=== PATIENT | male | born 1985 | race Two or more races ===

== ENCOUNTER 2019-07-05 20:02 | Inpatient (IN) | payer MEDICAID ==
[~2019-07-05] VITALS: Ht 177.8 cm; Wt 118.1 kg
--- NOTE | 2019-07-05 20:08 | NUR ---
ED Nurse Note: Patient brought in by ambulance with complaints of Supraventricular V-tach rhythm. Patient received two rounds of adenosine 12 in the field. Patient converted to NSR prior to arrival to ED. Patient is resting comfortably with no s/s of acute distress. Patient placed on 2L O2 while satting at 88%. Patient talking with family with ease. Blood specimen collected and sent to lab. Urine specimen pending. Will continue to monitor for results and impending orders.
[2019-07-05 20:11] VITALS: BP 134/95
[2019-07-05] MEDS ORDERED: Labetalol 5mg/ml 20ml vial IV ONE (20:15)
[2019-07-05] MEDS ORDERED: METOPROLOL TART25 MG ORAL (20:19)
[2019-07-05] MEDS ORDERED: LISINOPRIL2.5 MG ORAL (20:19)
[2019-07-05 20:23] LABS: BASOPHILS % (AUTO) 1.1 % (0.0-2.0); EOSINOPHILS % (AUTO) 1.5 % (0.0-3.0); HEMATOCRIT 52.8 % (42.0-52.0); HEMOGLOBIN 17.2 G/DL (14.2-18.0); LYMPHOCYTES % (AUTO) 25.2 % (20.0-45.0); MEAN CORPUSCULAR VOLUME 92 FL (80-99); MONOCYTES % (AUTO) 5.9 % (1.0-10.0); NEUTROPHILS % (AUTO) 66.3 % (45.0-75.0); PLATELET COUNT 309 K/UL (150-450); RED BLOOD COUNT 5.74 M/UL (4.70-6.10); RED CELL DISTRIBUTION WIDTH 13.4 % (11.6-14.8); WHITE BLOOD COUNT 11.2 K/UL (4.8-10.8)
--- NOTE | 2019-07-05 20:23 | NUR ---
ED Nurse Note: Patient voided, urine specimen collected and sent to lab.
[2019-07-05 20:34] LABS: APPEARANCE,URINE CLEAR; BILIRUBIN, URINE NEGATIVE (NEGATIVE); GLUCOSE, URINE (UA) NEGATIVE (NEGATIVE); KETONES,URINE NEGATIVE (NEGATIVE); LEUKOCYTE ESTERASE ,URINE NEGATIVE (NEGATIVE); NITRITE,URINE NEGATIVE (NEGATIVE); PH,URINE 5 (4.5-8.0); PROTEIN,URINE 2+ (NEGATIVE); UROBILINOGEN,URINE NORMAL MG/DL (0.0-1.0)
[2019-07-05 20:45] LABS: COLOR,URINE YELLOW
--- NOTE | 2019-07-05 20:47 | Emergency Room Report ---
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 denies any recent fevers or chills denies any vomiting Denies any phlegm production or any obvious cough (JeffryGarrett gillespie DO) Allergies: Coded Allergies: No Known Allergies (Unverified , 07/05/19) COVID-19 Screening Contact w/high risk pt: No Recent Travel to affected area: No Experienced COVID-19 symptoms?: No (JeffryGarrett gillespie DO) Patient History Past Medical History: see triage record Reviewed Nursing Documentation: PMH: Agreed; PSxH: Agreed (Garrett Rossi DO) Nursing Documentation-PMH Hx Cardiac Problems: Yes - Gcdai-Djryphzna-Asfaq Syndrome Hx Hypertension: Yes (Garrett Rossi DO) Review of Systems All Other Systems: negative except mentioned in HPI (ChristopheralicjaGarrett MCELROY) Physical Exam Vital Signs Date Time Temp Pulse Resp B/P (MAP) Pulse Ox O2 Delivery O2 Flow Rate FiO2 07/05/19 20:03 97.2 110 24 150/101 (117) 81 Room Air Sp02 EP Interpretation: reviewed, abnormal - Low percentage, on 2 L nasal cannula patient saturating at 95% which is normal General Appearance: mild distress - Appears mildly tachypneic Head: normocephalic, atraumatic Eyes: bilateral eye PERRL, bilateral eye EOMI ENT: hearing grossly normal, normal pharynx, TMs + canals normal, uvula midline Neck: full range of motion, supple, no meningismus, no bony tend Respiratory: no rhonchi, no respiratory distress, no retraction, no accessory muscle use, crackles - both Lower lobes Cardiovascular #1: normal peripheral pulses, no edema, no gallop, no JVD, no murmur, tachycardia Gastrointestinal: normal bowel sounds, non tender, soft, no mass, no organomegaly, non-distended, no guarding, no hernia, no pulsatile mass, no rebound Genitourinary: no CVA tenderness Musculoskeletal: normal inspection Neurologic: motor strength/tone normal, inspector rubber stamp die III-XII nml as tested, oriented x3 , sensory intact, responsive Psychiatric: mood/affect normal Skin: no rash Lymphatic: normal inspection, no adenopathy (Garrett Rossi DO) Medical Decision Making Diagnostic Impression: Primary Impression: Pneumonia Additional Impression: SVT (supraventricular tachycardia) ER Course Patient is a fairly complex patient with multiple differential to consideration including but not limited to cardiac cardiopulmonary and vascular emergencies With the patient's initial presentation of SVT cardiac work-up was initiated x- ray imaging however does show evidence of concern for right-sided pneumonia Given the patient's Multiple comorbidities and presentation there is concern for covid-19 Patient also had complaints of sore throat At this time saturating well on 2 L nasal cannula And patient admitted to inpatient care for further evaluation Labs Test 07/05/19 20:00 07/05/19 20:19 07/06/19 09:05 07/06/19 09:30 White Blood Count 11.2 K/UL (4.8-10.8) 9.8 K/UL (4.8-10.8) Red Blood Count 5.74 M/UL (4.70-6.10) 5.30 M/UL (4.70-6.10) Hemoglobin 17.2 G/DL (14.2-18.0) 16.2 G/DL (14.2-18.0) Hematocrit 52.8 % (42.0-52.0) 46.7 % (42.0-52.0) Mean Corpuscular Volume 92 FL (80-99) 88 FL (80-99) Mean Corpuscular Hemoglobin 30.0 PG (27.0-31.0) 30.6 PG (27.0-31.0) Mean Corpuscular Hemoglobin Concent 32.6 G/DL (32.0-36.0) 34.7 G/DL (32.0-36.0) Red Cell Distribution Width 13.4 % (11.6-14.8) 11.8 % (11.6-14.8) Platelet Count 309 K/UL (150-450) 305 K/UL (150-450) Mean Platelet Volume 7.9 FL (6.5-10.1) 6.5 FL (6.5-10.1) Neutrophils (%) (Auto) 66.3 % (45.0-75.0) 58.4 % (45.0-75.0) Lymphocytes (%) (Auto) 25.2 % (20.0-45.0) 29.2 % (20.0-45.0) Monocytes (%) (Auto) 5.9 % (1.0-10.0) 8.5 % (1.0-10.0) Eosinophils (%) (Auto) 1.5 % (0.0-3.0) 2.7 % (0.0-3.0) Basophils (%) (Auto) 1.1 % (0.0-2.0) 1.2 % (0.0-2.0) Prothrombin Time 10.5 SEC (9.30-11.50) Prothromb Time International Ratio 1.0 (0.9-1.1) Activated Partial Thromboplast Time 27 SEC (23-33) Sodium Level 144 MMOL/L (136-145) 145 MMOL/L (136-145) Potassium Level 3.7 MMOL/L (3.5-5.1) 3.8 MMOL/L (3.5-5.1) Chloride Level 107 MMOL/L (98-107) 108 MMOL/L (98-107) Carbon Dioxide Level 22 MMOL/L (21-32) 25 MMOL/L (21-32) Anion Gap 15 mmol/L (5-15) 12 mmol/L (5-15) Blood Urea Nitrogen 12 mg/dL (7-18) 12 mg/dL (7-18) Creatinine 1.2 MG/DL (0.55-1.30) 1.0 MG/DL (0.55-1.30) Estimat Glomerular Filtration Rate > 60 mL/min (>60) > 60 mL/min (>60) Glucose Level 132 MG/DL (74-106) 100 MG/DL (74-106) Calcium Level 9.7 MG/DL (8.5-10.1) 8.8 MG/DL (8.5-10.1) Total Bilirubin 0.5 MG/DL (0.2-1.0) 0.8 MG/DL (0.2-1.0) Aspartate Amino Transf (AST/SGOT) 69 U/L (15-37) 49 U/L (15-37) Alanine Aminotransferase (ALT/SGPT) 134 U/L (12-78) 117 U/L (12-78) Alkaline Phosphatase 84 U/L (46-116) 64 U/L (46-116) Troponin I 0.011 ng/mL (0.000-0.056) Pro-B-Type Natriuretic Peptide 39 pg/mL (0-125) Total Protein 7.9 G/DL (6.4-8.2) 7.3 G/DL (6.4-8.2) Albumin 4.3 G/DL (3.4-5.0) 3.9 G/DL (3.4-5.0) Globulin 3.6 g/dL 3.4 g/dL Albumin/Globulin Ratio 1.2 (1.0-2.7) 1.1 (1.0-2.7) Urine Color Yellow Urine Appearance Clear Urine pH 5 (4.5-8.0) Urine Specific [place] 1.025 (1.005-1.035) Urine Protein 2+ (NEGATIVE) Urine Glucose (UA) Negative (NEGATIVE) Urine Ketones Negative (NEGATIVE) Urine Blood Negative (NEGATIVE) Urine Nitrite Negative (NEGATIVE) Urine Bilirubin Negative (NEGATIVE) Urine Urobilinogen Normal MG/DL (0.0-1.0) Urine Leukocyte Esterase Negative (NEGATIVE) Urine RBC 0 /HPF (0 - 0) Urine WBC 0-2 /HPF (0 - 0) Urine Squamous Epithelial Cells None /LPF (NONE/OCC) Urine Bacteria Few /HPF (NONE) Urine Hyaline Casts 0-2 /LPF (NONE) Urine Opiates Screen Negative (NEGATIVE) Urine Barbiturates Screen Negative (NEGATIVE) Phencyclidine (PCP) Screen Negative (NEGATIVE) Urine Amphetamines Screen Negative (NEGATIVE) Urine Benzodiazepines Screen Negative (NEGATIVE) Urine Cocaine Screen Negative (NEGATIVE) Urine Marijuana (THC) Screen Negative (NEGATIVE) C-Reactive Protein, Quantitative 0.5 mg/dL (0.00-0.90) Test 07/07/19 06:25 07/08/19 05:20 White Blood Count 8.9 K/UL (4.8-10.8) 8.7 K/UL (4.8-10.8) Red Blood Count 4.95 M/UL (4.70-6.10) 5.16 M/UL (4.70-6.10) Hemoglobin 15.7 G/DL (14.2-18.0) 16.1 G/DL (14.2-18.0) Hematocrit 43.9 % (42.0-52.0) 45.2 % (42.0-52.0) Mean Corpuscular Volume 89 FL (80-99) 88 FL (80-99) Mean Corpuscular Hemoglobin 31.7 PG (27.0-31.0) 31.1 PG (27.0-31.0) Mean Corpuscular Hemoglobin Concent 35.8 G/DL (32.0-36.0) 35.5 G/DL (32.0-36.0) Red Cell Distribution Width 11.9 % (11.6-14.8) 11.6 % (11.6-14.8) Platelet Count 271 K/UL (150-450) 284 K/UL (150-450) Mean Platelet Volume 6.6 FL (6.5-10.1) 6.4 FL (6.5-10.1) Neutrophils (%) (Auto) 48.3 % (45.0-75.0) 52.9 % (45.0-75.0) Lymphocytes (%) (Auto) 36.8 % (20.0-45.0) 33.4 % (20.0-45.0) Monocytes (%) (Auto) 9.3 % (1.0-10.0) 8.5 % (1.0-10.0) Eosinophils (%) (Auto) 4.6 % (0.0-3.0) 4.2 % (0.0-3.0) Basophils (%) (Auto) 1.1 % (0.0-2.0) 1.0 % (0.0-2.0) Sodium Level 141 MMOL/L (136-145) 140 MMOL/L (136-145) Potassium Level 3.5 MMOL/L (3.5-5.1) 3.3 MMOL/L (3.5-5.1) Chloride Level 107 MMOL/L (98-107) 105 MMOL/L (98-107) Carbon Dioxide Level 23 MMOL/L (21-32) 22 MMOL/L (21-32) Anion Gap 11 mmol/L (5-15) 13 mmol/L (5-15) Blood Urea Nitrogen 14 mg/dL (7-18) 10 mg/dL (7-18) Creatinine 1.0 MG/DL (0.55-1.30) 0.8 MG/DL (0.55-1.30) Estimat Glomerular Filtration Rate > 60 mL/min (>60) > 60 mL/min (>60) Glucose Level 98 MG/DL (74-106) 87 MG/DL (74-106) Calcium Level 8.7 MG/DL (8.5-10.1) 8.3 MG/DL (8.5-10.1) Total Bilirubin 0.3 MG/DL (0.2-1.0) 0.3 MG/DL (0.2-1.0) Aspartate Amino Transf (AST/SGOT) 41 U/L (15-37) 60 U/L (15-37) Alanine Aminotransferase (ALT/SGPT) 95 U/L (12-78) 130 U/L (12-78) Alkaline Phosphatase 66 U/L (46-116) 67 U/L (46-116) Troponin I 0.045 ng/mL (0.000-0.056) Pro-B-Type Natriuretic Peptide 74 pg/mL (0-125) Total Protein 6.9 G/DL (6.4-8.2) 7.2 G/DL (6.4-8.2) Albumin 3.6 G/DL (3.4-5.0) 3.8 G/DL (3.4-5.0) Globulin 3.3 g/dL 3.4 g/dL Albumin/Globulin Ratio 1.1 (1.0-2.7) 1.1 (1.0-2.7) Thyroid Stimulating Hormone (TSH) 1.893 uiU/mL (0.358-3.740) Free Thyroxine 0.74 NG/DL (0.76-1.46) Hepatitis A IgM Antibody Negative (Negative) Hepatitis B Surface Antigen Negative (Negative) Hepatitis B Core IgM Antibody Negative (Negative) Hepatitis C Antibody <0.1 s/co ratio (Garrett Rossi DO) ER Course I assumed care of this patient during my shift. The patient had presented with pneumonia and shortness of breath. The patient was on oxygen and in isolation for COVID-19. The patient remained stable and on droplet precautions with oxygen saturations in the high 90s. There was no deterioration of this patient during my care. This patient was evaluated in the context of the global COVID-19 pandemic, which necessitated consideration that the patient might be at risk for infection with the [id number] virus that causes COVID-19. Institutional protocols in a log rhythms that pertain to the evaluation of patients at risk for COVID-19 and the state of rapid change based on information released by multiple regulatory bodies including the CDC and federal and state organizations. These policies and algorithms were followed during the patient' s care in the ED. Laboratory Tests Test 07/05/19 20:00 07/05/19 20:19 07/06/19 09:05 07/06/19 09:30 White Blood Count 11.2 K/UL (4.8-10.8) H 9.8 K/UL (4.8-10.8) Red Blood Count 5.74 M/UL (4.70-6.10) 5.30 M/UL (4.70-6.10) Hemoglobin 17.2 G/DL (14.2-18.0) 16.2 G/DL (14.2-18.0) Hematocrit 52.8 % (42.0-52.0) H 46.7 % (42.0-52.0) Mean Corpuscular Volume 92 FL (80-99) 88 FL (80-99) Mean Corpuscular Hemoglobin 30.0 PG (27.0-31.0) 30.6 PG (27.0-31.0) Mean Corpuscular Hemoglobin Concent 32.6 G/DL (32.0-36.0) 34.7 G/DL (32.0-36.0) Red Cell Distribution Width 13.4 % (11.6-14.8) 11.8 % (11.6-14.8) Platelet Count 309 K/UL (150-450) 305 K/UL (150-450) Mean Platelet Volume 7.9 FL (6.5-10.1) 6.5 FL (6.5-10.1) Neutrophils (%) (Auto) 66.3 % (45.0-75.0) 58.4 % (45.0-75.0) Lymphocytes (%) (Auto) 25.2 % (20.0-45.0) 29.2 % (20.0-45.0) Monocytes (%) (Auto) 5.9 % (1.0-10.0) 8.5 % (1.0-10.0) Eosinophils (%) (Auto) 1.5 % (0.0-3.0) 2.7 % (0.0-3.0) Basophils (%) (Auto) 1.1 % (0.0-2.0) 1.2 % (0.0-2.0) Prothrombin Time 10.5 SEC (9.30-11.50) Prothrombin Time INR 1.0 (0.9-1.1) Activated Partial Thromboplast Time 27 SEC (23-33) Sodium Level 144 MMOL/L (136-145) 145 MMOL/L (136-145) Potassium Level 3.7 MMOL/L (3.5-5.1) 3.8 MMOL/L (3.5-5.1) Chloride Level 107 MMOL/L (98-107) 108 MMOL/L (98-107) H Carbon Dioxide Level 22 MMOL/L (21-32) 25 MMOL/L (21-32) Anion Gap 15 mmol/L (5-15) 12 mmol/L (5-15) Blood Urea Nitrogen 12 mg/dL (7-18) 12 mg/dL (7-18) Creatinine 1.2 MG/DL (0.55-1.30) 1.0 MG/DL (0.55-1.30) Estimated Glomerular Filtration Rate > 60 mL/min (>60) > 60 mL/min (>60) Glucose Level 132 MG/DL (74-106) H 100 MG/DL (74-106) Calcium Level 9.7 MG/DL (8.5-10.1) 8.8 MG/DL (8.5-10.1) Total Bilirubin 0.5 MG/DL (0.2-1.0) 0.8 MG/DL (0.2-1.0) Aspartate Amino Transferase (AST) 69 U/L (15-37) H 49 U/L (15-37) H Alanine Aminotransferase (ALT) 134 U/L (12-78) H 117 U/L (12-78) H Alkaline Phosphatase 84 U/L (46-116) 64 U/L (46-116) Troponin I 0.011 ng/mL (0.000-0.056) Pro-B-Type Natriuretic Peptide 39 pg/mL (0-125) Total Protein 7.9 G/DL (6.4-8.2) 7.3 G/DL (6.4-8.2) Albumin 4.3 G/DL (3.4-5.0) 3.9 G/DL (3.4-5.0) Globulin 3.6 g/dL 3.4 g/dL Albumin/Globulin Ratio 1.2 (1.0-2.7) 1.1 (1.0-2.7) Urine Color Yellow Urine Appearance Clear Urine pH 5 (4.5-8.0) Urine Specific [place] 1.025 (1.005-1.035) Urine Protein 2+ (NEGATIVE) H Urine Glucose (UA) Negative (NEGATIVE) Urine Ketones Negative (NEGATIVE) Urine Blood Negative (NEGATIVE) Urine Nitrite Negative (NEGATIVE) Urine Bilirubin Negative (NEGATIVE) Urine Urobilinogen Normal MG/DL (0.0-1.0) Urine Leukocyte Esterase Negative (NEGATIVE) Urine RBC 0 /HPF (0 - 0) Urine WBC 0-2 /HPF (0 - 0) Urine Squamous Epithelial Cells None /LPF (NONE/OCC) Urine Bacteria Few /HPF (NONE) Urine Hyaline Casts 0-2 /LPF (NONE) H Urine Opiates Screen Negative (NEGATIVE) Urine Barbiturates Screen Negative (NEGATIVE) Phencyclidine (PCP) Screen Negative (NEGATIVE) Urine Amphetamines Screen Negative (NEGATIVE) Urine Benzodiazepines Screen Negative (NEGATIVE) Urine Cocaine Screen Negative (NEGATIVE) Urine Marijuana (THC) Screen Negative (NEGATIVE) C-Reactive Protein, Quantitative 0.5 mg/dL (0.00-0.90) (Kaylee Rodriguez DO) Rhythm Strip Diag. Results EP Interpretation: yes Rate: 108 Rhythm: no PVC's, no ectopy, other - Sinus tach (Garrett Rossi DO) Chest X-Ray Diagnostic Results Chest X-Ray Diagnostic Results : Chest X-Ray Ordered: Yes # of Views/Limited/Complete: 1 View Indication: Chest Pain EP Interpretation: Yes Interpretation: no effusion, no pneumothorax, other - Right-sided upper and mid lung infiltrates Impression: Other - Right-sided infiltrate Electronically Signed by: Garrett Rossi DO (Garrett Rossi DO) Last Vital Signs Date Time Temp Pulse Resp B/P (MAP) Pulse Ox O2 Delivery O2 Flow Rate FiO2 07/05/19 20:19 110 134/95 07/05/19 20:11 97.2 24 81 Room Air Status: improved (Garrett Rossi DO) Disposition: ADMITTED INPATIENT Condition: Serious Garrett Rossi DO Jul 05, 2019 20:47 Kaylee Rodriguez DO Jul 06, 2019 13:12
[2019-07-05 20:56] LABS: ANION GAP 15 mmol/L (5-15); BLOOD UREA NITROGEN 12 mg/dL (7-18); CALCIUM 9.7 MG/DL (8.5-10.1); CARBON DIOXIDE 22 MMOL/L (21-32); CHLORIDE 107 MMOL/L (98-107); CREATININE 1.2 MG/DL (0.55-1.30); POTASSIUM 3.7 MMOL/L (3.5-5.1); SODIUM 144 MMOL/L (136-145)
[2019-07-05 21:07] LABS: ALANINE AMINOTRANSFERASE 134 U/L (12-78); ALBUMIN 4.3 G/DL (3.4-5.0); ALBUMIN/GLOBULIN RATIO 1.2 (1.0-2.7); ALKALINE PHOSPHATASE 84 U/L (46-116); ASPARTATE AMINO TRANSFERASE 69 U/L (15-37); BILIRUBIN,TOTAL 0.5 MG/DL (0.2-1.0)
[2019-07-05 21:40] VITALS: BP 158/105
--- NOTE | 2019-07-05 21:40 | NUR ---
ED Nurse Note: Report received from TORY Carbajal. Pt placed in ortho room with ISO precautions implemented. Pt is in no acute distress at this time. Pt is on 2L oxygen via nc. Pt connected to monitor worker. Safety measures in place. Will continue to closely monitor pt.
[2019-07-05 23:40] VITALS: BP 139/91
--- NOTE | 2019-07-05 23:40 | NUR ---
ED Nurse Note: Pt appears to be sleeping at this time, no acute distress noted. Pt is breathing normal and unlabored on 2L oxygen via NC. Will continue to monitor. Vital signs stable as charted.
[2019-07-06] VITALS (10 sets, daily range): BP systolic 123–189; BP diastolic 81–101
--- NOTE | 2019-07-06 02:00 | NUR ---
ED Nurse Note: Pt is awake, alert and watching tv on cell phone. Pt is breathing normal and unlabored and speaking in full sentences on 2L oxygen via NC. VSS as charted. No acute distress noted. Pt repositioned and IV fluids inititated. Will continue to monitor, safety measures in place.
--- NOTE | 2019-07-06 03:34 | Diagnostic Imaging Report ---
EXAM: XR Chest, 1 View EXAM: XR Chest, 1 View CLINICAL HISTORY: Images Study Description: XRAY CHEST 1 V Body Part: CHEST chest pain TECHNIQUE: Frontal view of the chest. COMPARISON: No relevant prior studies available. FINDINGS: Study limited to single portable AP chest radiograph. No significant cardiac enlargement. Ill-defined patchy alveolar densities right upper and right lung base indeterminate for pneumonia. Recommend upright PA and lateral views of the chest. Negative for pneumothorax or pleural fluid collections.
--- NOTE | 2019-07-06 04:00 | NUR ---
ED Nurse Note: Pt is resting comfortably in bed, no acute distress noted. AM labs drawn by RN and sent to lab. Pt provided with oral hydration. Vital signs are stable. Will continue to monitor.
--- NOTE | 2019-07-06 06:15 | NUR ---
ED Nurse Note: Pt is awake and alert, breathing is normal and unlabored. No acute distress noted. COVID swab done and sent to lab. Pt remains on 2L oxygen via NC. Will continue to monitor pt.
--- NOTE | 2019-07-06 06:40 | NUR ---
ED Nurse Note: Pt moved to room 7 at this time, connected to pvc monitor. ISO precuations taken.
--- NOTE | 2019-07-06 07:00 | NUR ---
HAND-OFF: Report given to TORY Gatica and endorsed plan of care.
--- NOTE | 2019-07-06 08:30 | NUR ---
ED Nurse Note: Received pt from TORY Saleem for continuity of care. Pt is on bed, awake and alert, VSS, on 2LPM via NC. Pt denies any pain nor discomfort as of now. Maintained on droplet isolation precautions. Safety assured. will continue to monitor.
--- NOTE | 2019-07-06 08:40 | NUR ---
ED Nurse Note: Called and spoke with Dr. Zavala for any additional admitting orders: received order for CBC, CMP and cardiac diet; no ordered meds as of now.
--- NOTE | 2019-07-06 09:05 | NUR ---
ED Nurse Note: established another IV site on RT AC with 20G, blood collected, sent to labs. Hydration going on IV site, patent and infusing well.
[2019-07-06 09:26] LABS: ANION GAP 12 mmol/L (5-15); BLOOD UREA NITROGEN 12 mg/dL (7-18); CALCIUM 8.8 MG/DL (8.5-10.1); CARBON DIOXIDE 25 MMOL/L (21-32); CHLORIDE 108 MMOL/L (98-107); POTASSIUM 3.8 MMOL/L (3.5-5.1); SODIUM 145 MMOL/L (136-145)
[2019-07-06 09:31] LABS: ALANINE AMINOTRANSFERASE 117 U/L (12-78); ALBUMIN 3.9 G/DL (3.4-5.0); ALBUMIN/GLOBULIN RATIO 1.1 (1.0-2.7); ALKALINE PHOSPHATASE 64 U/L (46-116); ASPARTATE AMINO TRANSFERASE 49 U/L (15-37); BILIRUBIN,TOTAL 0.8 MG/DL (0.2-1.0)
--- NOTE | 2019-07-06 09:49 | General Progress Note ---
Assessment/Plan Problem List: (1) Elevated LFTs ICD Codes: R79.89 - Other specified abnormal findings of blood chemistry SNOMED: 384885794, 422190684 (2) SVT (supraventricular tachycardia) ICD Codes: I47.1 - Supraventricular tachycardia SNOMED: 1929266 (3) Pneumonia ICD Codes: J18.9 - Pneumonia, unspecified organism SNOMED: 245387349 (4) Suspected COVID-19 virus infection ICD Codes: R68.89 - Other general symptoms and signs SNOMED: 148570534 Assessment/Plan: mild transaminitis ca be due to COVID pending culture also can be medication related hepatitis panel abd us repeat labs will fu Subjective Allergies: Coded Allergies: No Known Allergies (Unverified , 07/05/19) Objective Last 24 Hour Vital Signs Date Time Temp Pulse Resp B/P (MAP) Pulse Ox O2 Delivery O2 Flow Rate FiO2 07/06/19 08:55 97.1 93 19 148/98 95 Nasal Cannula 2.0 07/06/19 06:15 97.1 91 19 155/100 97 Nasal Cannula 2.0 07/06/19 04:00 97.4 99 24 123/82 96 Nasal Cannula 2.0 07/06/19 02:00 97.5 92 21 128/81 96 Nasal Cannula 2.0 07/05/19 23:40 97.2 87 23 139/91 96 Nasal Cannula 2.0 07/05/19 21:40 97.2 95 17 158/105 100 Nasal Cannula 2.0 07/05/19 20:19 110 134/95 07/05/19 20:11 97.2 110 24 134/95 81 Room Air 07/05/19 20:11 110 24 Room Air 07/05/19 20:03 97.2 110 24 150/101 (117) 81 Room Air Intake and Output 07/05/19 07/06/19 19:00 07:00 Intake Total 0 ml Balance 0 ml Intake Oral 0 ml Laboratory Tests 07/05/19 20:00: White Blood Count 11.2H, Red Blood Count 5.74, Hemoglobin 17.2, Hematocrit 52.8H , Mean Corpuscular Volume 92, Mean Corpuscular Hemoglobin 30.0, Mean Corpuscular Hemoglobin Concent 32.6, Red Cell Distribution Width 13.4, Platelet Count 309, Mean Platelet Volume 7.9, Neutrophils (%) (Auto) 66.3, Lymphocytes (% ) (Auto) 25.2, Monocytes (%) (Auto) 5.9, Eosinophils (%) (Auto) 1.5, Basophils ( %) (Auto) 1.1, Prothrombin Time 10.5, Prothromb Time International Ratio 1.0, Activated Partial Thromboplast Time 27, Sodium Level 144, Potassium Level 3.7, Chloride Level 107, Carbon Dioxide Level 22, Anion Gap 15, Blood Urea Nitrogen 12, Creatinine 1.2, Estimat Glomerular Filtration Rate > 60, Glucose Level 132H , Calcium Level 9.7, Total Bilirubin 0.5, Aspartate Amino Transf (AST/SGOT) 69H , Alanine Aminotransferase (ALT/SGPT) 134H, Alkaline Phosphatase 84, Troponin I 0.011, Pro-B-Type Natriuretic Peptide 39, Total Protein 7.9, Albumin 4.3, Globulin 3.6, Albumin/Globulin Ratio 1.2 07/05/19 20:19: Urine Color Yellow, Urine Appearance Clear, Urine pH 5, Urine Specific [place] 1.025, Urine Protein 2+H, Urine Glucose (UA) Negative, Urine Ketones Negative, Urine Blood Negative, Urine Nitrite Negative, Urine Bilirubin Negative, Urine Urobilinogen Normal, Urine Leukocyte Esterase Negative, Urine RBC 0, Urine WBC 0 -2, Urine Squamous Epithelial Cells None, Urine Bacteria Few, Urine Hyaline Casts 0-2H, Urine Opiates Screen Negative, Urine Barbiturates Screen Negative, Phencyclidine (PCP) Screen Negative, Urine Amphetamines Screen Negative, Urine Benzodiazepines Screen Negative, Urine Cocaine Screen Negative, Urine Marijuana (THC) Screen Negative 07/06/19 09:05: Sodium Level 145, Potassium Level 3.8, Chloride Level 108H, Carbon Dioxide Level 25, Anion Gap 12, Blood Urea Nitrogen 12, Creatinine 1.0, Estimat Glomerular Filtration Rate > 60, Glucose Level 100, Calcium Level 8.8, Total Bilirubin 0.8, Aspartate Amino Transf (AST/SGOT) 49H, Alanine Aminotransferase ( ALT/SGPT) 117H, Alkaline Phosphatase 64, Total Protein 7.3, Albumin 3.9, Globulin 3.4, Albumin/Globulin Ratio 1.1, C-Reactive Protein, Quantitative 0.5 07/06/19 09:30: White Blood Count [Pending], Red Blood Count [Pending], Hemoglobin [Pending], Hematocrit [Pending], Mean Corpuscular Volume [Pending], Mean Corpuscular Hemoglobin [Pending], Mean Corpuscular Hemoglobin Concent [Pending], Red Cell Distribution Width [Pending], Platelet Count [Pending], Mean Platelet Volume [ Pending], Neutrophils (%) (Auto) [Pending], Lymphocytes (%) (Auto) [Pending], Monocytes (%) (Auto) [Pending], Eosinophils (%) (Auto) [Pending], Basophils (%) (Auto) [Pending] Height (Feet): 5 Height (Inches): 10.00 Weight (Pounds): 240 General Appearance: alert EENT: normal ENT inspection Neck: supple Cardiovascular: normal rate Respiratory/Chest: lungs clear Abdomen: normal bowel sounds, non tender, soft Extremities: non-tender Yobani Ames MD Jul 06, 2019 09:49
[2019-07-06 10:10] LABS: BASOPHILS % (AUTO) 1.2 % (0.0-2.0); EOSINOPHILS % (AUTO) 2.7 % (0.0-3.0); HEMATOCRIT 46.7 % (42.0-52.0); HEMOGLOBIN 16.2 G/DL (14.2-18.0); LYMPHOCYTES % (AUTO) 29.2 % (20.0-45.0); MEAN CORPUSCULAR VOLUME 88 FL (80-99); MONOCYTES % (AUTO) 8.5 % (1.0-10.0); NEUTROPHILS % (AUTO) 58.4 % (45.0-75.0); PLATELET COUNT 305 K/UL (150-450); RED CELL DISTRIBUTION WIDTH 11.8 % (11.6-14.8); WHITE BLOOD COUNT 9.8 K/UL (4.8-10.8)
--- NOTE | 2019-07-06 12:00 | NUR ---
ED Nurse Note: Pt's on bed, awake and alert, VSS, satting at 2LMP via NC; NAD. Pt was maintained on NPO.
--- NOTE | 2019-07-06 13:30 | NUR ---
ED Nurse Note: Report given to Jeovanny SPEARS in [address]
--- NOTE | 2019-07-06 14:13 | Cardiac Electrophysiology PN ---
Subjective Subjective [id number] Objective Last 24 Hour Vital Signs Date Time Temp Pulse Resp B/P (MAP) Pulse Ox O2 Delivery O2 Flow Rate FiO2 07/06/19 13:16 Nasal Cannula 2.0 07/06/19 12:52 97.1 93 24 150/100 100 Nasal Cannula 2.0 07/06/19 10:09 97.1 84 20 148/98 98 Nasal Cannula 2.0 07/06/19 08:55 97.1 93 19 148/98 95 Nasal Cannula 2.0 07/06/19 06:15 97.1 91 19 155/100 97 Nasal Cannula 2.0 07/06/19 04:00 97.4 99 24 123/82 96 Nasal Cannula 2.0 07/06/19 02:00 97.5 92 21 128/81 96 Nasal Cannula 2.0 07/05/19 23:40 97.2 87 23 139/91 96 Nasal Cannula 2.0 07/05/19 21:40 97.2 95 17 158/105 100 Nasal Cannula 2.0 07/05/19 20:19 110 134/95 07/05/19 20:11 97.2 110 24 134/95 81 Room Air 07/05/19 20:11 110 24 Room Air 07/05/19 20:03 97.2 110 24 150/101 (117) 81 Room Air Intake and Output 07/05/19 07/06/19 19:00 07:00 Intake Total 0 ml Balance 0 ml Intake Oral 0 ml Laboratory Tests Test 07/05/19 20:00 07/05/19 20:19 07/06/19 09:05 07/06/19 09:30 White Blood Count 11.2 K/UL (4.8-10.8) H 9.8 K/UL (4.8-10.8) Red Blood Count 5.74 M/UL (4.70-6.10) 5.30 M/UL (4.70-6.10) Hemoglobin 17.2 G/DL (14.2-18.0) 16.2 G/DL (14.2-18.0) Hematocrit 52.8 % (42.0-52.0) H 46.7 % (42.0-52.0) Mean Corpuscular Volume 92 FL (80-99) 88 FL (80-99) Mean Corpuscular Hemoglobin 30.0 PG (27.0-31.0) 30.6 PG (27.0-31.0) Mean Corpuscular Hemoglobin Concent 32.6 G/DL (32.0-36.0) 34.7 G/DL (32.0-36.0) Red Cell Distribution Width 13.4 % (11.6-14.8) 11.8 % (11.6-14.8) Platelet Count 309 K/UL (150-450) 305 K/UL (150-450) Mean Platelet Volume 7.9 FL (6.5-10.1) 6.5 FL (6.5-10.1) Neutrophils (%) (Auto) 66.3 % (45.0-75.0) 58.4 % (45.0-75.0) Lymphocytes (%) (Auto) 25.2 % (20.0-45.0) 29.2 % (20.0-45.0) Monocytes (%) (Auto) 5.9 % (1.0-10.0) 8.5 % (1.0-10.0) Eosinophils (%) (Auto) 1.5 % (0.0-3.0) 2.7 % (0.0-3.0) Basophils (%) (Auto) 1.1 % (0.0-2.0) 1.2 % (0.0-2.0) Prothrombin Time 10.5 SEC (9.30-11.50) Prothromb Time International Ratio 1.0 (0.9-1.1) Activated Partial Thromboplast Time 27 SEC (23-33) Sodium Level 144 MMOL/L (136-145) 145 MMOL/L (136-145) Potassium Level 3.7 MMOL/L (3.5-5.1) 3.8 MMOL/L (3.5-5.1) Chloride Level 107 MMOL/L (98-107) 108 MMOL/L (98-107) H Carbon Dioxide Level 22 MMOL/L (21-32) 25 MMOL/L (21-32) Anion Gap 15 mmol/L (5-15) 12 mmol/L (5-15) Blood Urea Nitrogen 12 mg/dL (7-18) 12 mg/dL (7-18) Creatinine 1.2 MG/DL (0.55-1.30) 1.0 MG/DL (0.55-1.30) Estimat Glomerular Filtration Rate > 60 mL/min (>60) > 60 mL/min (>60) Glucose Level 132 MG/DL (74-106) H 100 MG/DL (74-106) Calcium Level 9.7 MG/DL (8.5-10.1) 8.8 MG/DL (8.5-10.1) Total Bilirubin 0.5 MG/DL (0.2-1.0) 0.8 MG/DL (0.2-1.0) Aspartate Amino Transf (AST/SGOT) 69 U/L (15-37) H 49 U/L (15-37) H Alanine Aminotransferase (ALT/SGPT) 134 U/L (12-78) H 117 U/L (12-78) H Alkaline Phosphatase 84 U/L (46-116) 64 U/L (46-116) Troponin I 0.011 ng/mL (0.000-0.056) Pro-B-Type Natriuretic Peptide 39 pg/mL (0-125) Total Protein 7.9 G/DL (6.4-8.2) 7.3 G/DL (6.4-8.2) Albumin 4.3 G/DL (3.4-5.0) 3.9 G/DL (3.4-5.0) Globulin 3.6 g/dL 3.4 g/dL Albumin/Globulin Ratio 1.2 (1.0-2.7) 1.1 (1.0-2.7) Urine Color Yellow Urine Appearance Clear Urine pH 5 (4.5-8.0) Urine Specific [place] 1.025 (1.005-1.035) Urine Protein 2+ (NEGATIVE) H Urine Glucose (UA) Negative (NEGATIVE) Urine Ketones Negative (NEGATIVE) Urine Blood Negative (NEGATIVE) Urine Nitrite Negative (NEGATIVE) Urine Bilirubin Negative (NEGATIVE) Urine Urobilinogen Normal MG/DL (0.0-1.0) Urine Leukocyte Esterase Negative (NEGATIVE) Urine RBC 0 /HPF (0 - 0) Urine WBC 0-2 /HPF (0 - 0) Urine Squamous Epithelial Cells None /LPF (NONE/OCC) Urine Bacteria Few /HPF (NONE) Urine Hyaline Casts 0-2 /LPF (NONE) H Urine Opiates Screen Negative (NEGATIVE) Urine Barbiturates Screen Negative (NEGATIVE) Phencyclidine (PCP) Screen Negative (NEGATIVE) Urine Amphetamines Screen Negative (NEGATIVE) Urine Benzodiazepines Screen Negative (NEGATIVE) Urine Cocaine Screen Negative (NEGATIVE) Urine Marijuana (THC) Screen Negative (NEGATIVE) C-Reactive Protein, Quantitative 0.5 mg/dL (0.00-0.90) Diego Jones MD Jul 06, 2019 14:13
--- NOTE | 2019-07-06 14:39 | NUR ---
TRANSFER TO FLOOR: Patient transferred to Telemetry Unit as ordered, per Dr. Zavala. Report given to TORY Up. Belongings and medications given to receiving primary nurse. Family and or S/O informed of transfer.
--- NOTE | 2019-07-06 14:50 | NUR ---
NURSE NOTES: Admitted patient from ED via gurney to TELE rm 219-2. Patient is AAO X4, Able to make needs known. monitoring tech placed on client. Patient is on 2L NC and saturating at 97%. All admission orders entered by MD. Admission protocols followed and implemented. Awaiting result for Covid R/O. Patient denies any pain at this time. No s/s of respiratory distress noted. Will continue to monitor patient.
--- NOTE | 2019-07-06 15:44 | NUR ---
NURSE NOTES: Notified Dr Zavala if patient can be put back on regular diet since ultrasound will not be able to do the US ABD until covid result is back. Awaiting MD's. Will continue with the plan of care.
--- NOTE | 2019-07-06 19:27 | NUR ---
HAND-OFF: Report given to Tisha SPEARS. Patient is in stable condition.
--- NOTE | 2019-07-06 19:45 | NUR ---
NURSE NOTES: Received report from TORY Chavira. Patient is on bed, awake, alert and oriented x 4. No acute signs and symptoms of distress noted at this time. Patient is connected to oxygen via nasal cannula @ 2Lpm with no respiratory distress reported. elevator service technician is on shows sinus rhythm. IV is on right AC g-20 saline lock, that is dry and intact. Patient is on cardiac diet-instructed. Safety measures are in placed. Call light and bedside table within reach, bed in low and locked position, side rails up x 2. Bed alarm is on. Patient is ambulatory and SCD's are off. Encouraged to call for any assistance needed. Will continue plan of care
--- NOTE | 2019-07-06 20:00 | Consultation ---
DATE OF CONSULTATION: 07/06/2019 INFECTIOUS DISEASES CONSULTATION CONSULTING PHYSICIAN: Marvel Pantoja MD. PRIMARY ATTENDING PHYSICIAN: Garrett Zavala MD. REASON FOR CONSULTATION: Leukocytosis, abnormal chest x-ray to rule out COVID-19. HISTORY OF PRESENT ILLNESS: The patient is a 33-year-old male admitted yesterday from home complaining of palpitations. 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 The patient had supraventricular tachycardia, received two rounds of adenosine. The patient had no fever, no cough but chest x-ray was abnormal so the patient was put on isolation room for COVID. PAST MEDICAL HISTORY: WPW status post ablation many years ago. ALLERGIES: No known drug allergies. MEDICATIONS: Getting labetalol in the ER, getting sodium chloride. SOCIAL HISTORY: Single. Denies alcohol, drug abuse, or smoking. works as personal injury law specialist REVIEW OF SYSTEMS: The patient has no fever. No chills. No coughing. No nausea. No vomiting. No chest pain. No palpitation at the present time. PHYSICAL EXAMINATION: VITAL SIGNS: Temperature 97.1, pulse 84, blood pressure 148/98. GENERAL APPEARANCE: Seems to be overweight. HEAD AND NECK: [place] conjunctiva. HEART: Normal rate. LUNGS: Clear. ABDOMEN: Soft, nontender, obese. EXTREMITIES: No edema. NEUROLOGIC: Awake, alert, oriented x3. LABORATORY AND DIAGNOSTIC DATA: WBC today is 9.8. WBC at the time of admission is 11.2, hemoglobin 16.2, hematocrit 46.7, and platelets 305. Sodium 145, potassium 3.8, chloride 108, bicarb 25, BUN 12, creatinine 1. AST and ALT slightly elevated, AST 49, ALT 117. Urine toxicology was negative. UA was also negative. Chest x-ray showed ill-defined patchy alveolar densities, right upper lobe and right middle indeterminate for pneumonia. IMPRESSION: 1. Leukocytosis, resolved. 2. Questionable pneumonia. 3. Supraventricular tachycardia. 4. Elevated transaminase level. RECOMMENDATION: For now, we observe off antibiotic, will follow up COVID test. We will repeat checks x-ray. At the end of my exam, I thank Dr. Zavala, for involving me in the care of this patient. Marvel Pantoja M.D. DR: Sachi JOB#: [id number] CC: SHEILA
--- NOTE | 2019-07-06 20:14 | Consultation ---
DATE OF CONSULTATION: 07/06/2019 PULMONARY CONSULTATION CONSULTING PHYSICIAN: Kwasi Dexter M.D. HISTORY OF PRESENT ILLNESS: This is a pulmonary consultation. Patient is a 33-year-old male who is admitted to the hospital. I have been asked for pulmonary consultation. Patient presented with cardiac arrhythmias. He has a history of WPW. He received adenosine and then converted to sinus tach. Patient was short of breath. He states he is on a beta-prince. He is admitted to the hospital. PAST HISTORY: Ylrha-Kobhuarrg-Qbzmb syndrome. HOME MEDICATIONS: Patient unable to recall. Currently, he is on labetalol and IV fluids. ALLERGIES: None reported. REVIEW OF SYSTEMS: Denies any headaches, hematemesis, melena, hematochezia, night sweats, or weight loss. PHYSICAL EXAMINATION: GENERAL: Reveals a 33-year-old male. HEENT: Unremarkable. LUNGS: Clear breath sounds bilaterally. ABDOMEN: Soft. NEUROLOGIC: Nonfocal. VITAL SIGNS: Blood pressure is 140/90, heart rate 94, respirations are 18, O2 saturation 98% on 2 L of oxygen. LABORATORY DATA: Lab testing is normal with normal CBC and BMP. X-ray chest shows clear lung [place] bilaterally. IMPRESSION: 1. Cardiac arrhythmias. 2. Dyspnea. DISCUSSION: Patient has mild transaminitis and is being seen by GI. ID consult is pending. Currently, he is doing well on low-flow oxygen. We will follow as well logging captain mud analysis. Hold off on empiric antibiotics, especially azithromycin and Plaquenil given cardiac arrhythmias. Kwasi Dexter M.D. DR: SINAI JOB#: [id number] CC:
--- NOTE | 2019-07-06 21:15 | Consultation ---
DATE OF CONSULTATION: 07/06/2019 CARDIOLOGY CONSULTATION CONSULTING PHYSICIAN: Diego Jones MD. REFERRING PHYSICIAN: Garrett Zavala MD. REASON FOR CONSULTATION: Recurrent palpitations due to SVT. HISTORY OF PRESENT ILLNESS: The patient is a 33-year-old man with history of recurrent supraventricular tachycardia and history of WPW. He called the paramedics for palpitation. The patient was found to be in SVT and received 2 rounds of adenosine therefore and he converted to sinus rhythm. The patient denies any chest pain; however, he was complaining of sore throat. The patient was also tachypneic. The patient apparently has been on beta-prince by his pediatric licensed practical nurse, but denies any fever, chills, nausea, or vomiting. The patient is admitted and Cardiology consultation was obtained for further evaluation. It is of note initial blood pressure was 150/101. REVIEW OF SYSTEMS: Negative other than what was mentioned in history of present illness. PAST MEDICAL HISTORY: As mentioned above. FAMILY HISTORY: Noncontributory. SOCIAL HISTORY: He lives at home. Does not smoke or drink alcohol. PHYSICAL EXAMINATION: VITAL SIGNS: Show blood pressure of 150/100, pulse is 93, respirations 18, and temperature 97.1. HEAD AND NECK: Showed no JVD. LUNGS: Clear. CARDIOVASCULAR: Shows regular S1 and S2 with no gallop or murmur. ABDOMEN: Soft. EXTREMITIES: No pitting edema. LABORATORY AND DIAGNOSTIC DATA: His labs show white count 9.8, hemoglobin of 16, hematocrit of 46, and platelet count is 305,000. Sodium 144, potassium 3.8, BUN of 12, creatinine 1, and glucose of 100. Troponin is negative. Urine toxicology is negative. His chest x-ray showed patchy alveolar density in the right upper and right lung base intermediate for pneumonia. ASSESSMENT AND PLAN: 1. Recurrent SVT in the patient with history of WPW despite beta-prince therapy. The patient likely would need electrophysiology study and ablation of this SVT. In the meantime, keep the patient on Lopressor 25 mg b.i.d. and get an echocardiogram for further evaluation. We will check a thyroid function test. 2. Questionable pneumonia. He is afebrile. White count is normal; however, chest x-ray was suspicious for infiltrate and he has some sore throat. Further evaluation by ID. Thank you very much for allowing me to participate in the care of this patient. Please do not hesitate to contact me for any questions regarding my evaluation. Diego Jones M.D. DR: Jossue JOB#: [id number] CC:
[2019-07-07] VITALS (8 sets, daily range): BP systolic 134–172; BP diastolic 73–107
[2019-07-07 06:42] LABS: BASOPHILS % (AUTO) 1.1 % (0.0-2.0); EOSINOPHILS % (AUTO) 4.6 % (0.0-3.0); HEMATOCRIT 43.9 % (42.0-52.0); HEMOGLOBIN 15.7 G/DL (14.2-18.0); LYMPHOCYTES % (AUTO) 36.8 % (20.0-45.0); MEAN CORPUSCULAR VOLUME 89 FL (80-99); MONOCYTES % (AUTO) 9.3 % (1.0-10.0); NEUTROPHILS % (AUTO) 48.3 % (45.0-75.0); PLATELET COUNT 271 K/UL (150-450); RED BLOOD COUNT 4.95 M/UL (4.70-6.10); RED CELL DISTRIBUTION WIDTH 11.9 % (11.6-14.8); WHITE BLOOD COUNT 8.9 K/UL (4.8-10.8)
--- NOTE | 2019-07-07 06:44 | History and Physical Report ---
DATE OF ADMISSION: 07/05/2019 HISTORY OF PRESENT ILLNESS: The patient came in with SVT, has a history of Jeovanny-Parkinson disease, got adenosine and it converted. X-ray showed the right pneumonia, was admitted for those reasons. The patient also had felt palpitations, called paramedics and found to have SVT. The patient got 2 rounds of adenosine, which converted to sinus. Denies chest pain. Denies sore throat. Denies headache. Denies shortness of breath. Denies any respiratory symptoms.% PAST MEDICAL HISTORY: Significant for possible history of Vzydl-Nlnrkqilk-Xpmxs syndrome and history of hypertension. PAST SURGICAL HISTORY: Denies. ALLERGIES: No known allergies. MEDICATIONS: Metoprolol and lisinopril. FAMILY HISTORY: Noncontributory. SOCIAL HISTORY: Denies history of smoking, alcohol, or illicit drugs. REVIEW OF SYSTEMS: HEENT: Denies headaches. Respiratory: Denies shortness of breath. Denies cough. Cardiovascular: Denies chest pain. Does have palpitation. Gastrointestinal: Denies nausea, vomiting, or diarrhea. Extremities: Denies pain. Central Nervous System: Denies change in speech pattern. PHYSICAL EXAMINATION: VITAL SIGNS: Temperature is 97.1, pulse is 96, blood pressure 142/98. HEENT: PERRLA. NECK: Supple. No lymphadenopathy. CHEST: Clear to auscultation. CARDIOVASCULAR: Regular rate and rhythm. No murmurs or extra sounds. GASTROINTESTINAL: Soft, nontender, and nondistended. No organomegaly. EXTREMITIES: No edema. Moves all four extremities. Sensory to light touch. Reflexes equal on both sides. LABORATORY DATA: WBC of 11.2, hemoglobin of 17, platelets 309. Sodium 144, potassium 3.7, BUN of 12, creatinine 1.2. Glucose . Troponin 0.015. AST of 69, ALT of 134. ASSESSMENT AND PLAN: Palpitation, SVT, history of WPW, elevated LFTs. I have consulted Dr. Jones, Dr. Kwasi Dexter, Dr. Marvel Pantoja, and Dr. Mathews for the management of the elevated LFTs and to rule out pneumonia and respiratory insufficiency as well as for the treatment of the SVT. Antibiotics if any per Dr. Marvel Pantoja. Ali Zaid Zavala DR: Vic JOB#: [id number] CC:
[2019-07-07 07:14] LABS: ALANINE AMINOTRANSFERASE 95 U/L (12-78); ALBUMIN 3.6 G/DL (3.4-5.0); ALBUMIN/GLOBULIN RATIO 1.1 (1.0-2.7); ALKALINE PHOSPHATASE 66 U/L (46-116); ANION GAP 11 mmol/L (5-15); ASPARTATE AMINO TRANSFERASE 41 U/L (15-37); BILIRUBIN,TOTAL 0.3 MG/DL (0.2-1.0); BLOOD UREA NITROGEN 14 mg/dL (7-18); CALCIUM 8.7 MG/DL (8.5-10.1); CARBON DIOXIDE 23 MMOL/L (21-32); CHLORIDE 107 MMOL/L (98-107); POTASSIUM 3.5 MMOL/L (3.5-5.1); SODIUM 141 MMOL/L (136-145)
--- NOTE | 2019-07-07 07:35 | NUR ---
HAND-OFF: Report given to TORY Up. Patient is in stable condition, no complaints made at this time. Plan of care endorsed.
--- NOTE | 2019-07-07 07:37 | NUR ---
NURSE NOTES: Received patient from Tisha in bed AAO X4, denies any pain at this time, no s/s of respiratory distress noted. IV is intact and patent. Bed is in lowest position, brakes engaged for safety. Call light is within reach. Will continue with the plan of care.
--- NOTE | 2019-07-07 09:31 | General Progress Note ---
Assessment/Plan Problem List: (1) Elevated LFTs ICD Codes: R79.89 - Other specified abnormal findings of blood chemistry SNOMED: 337814760, 042557461 (2) SVT (supraventricular tachycardia) ICD Codes: I47.1 - Supraventricular tachycardia SNOMED: 8477830 (3) Pneumonia ICD Codes: J18.9 - Pneumonia, unspecified organism SNOMED: 986111004 (4) Suspected COVID-19 virus infection ICD Codes: R68.89 - Other general symptoms and signs SNOMED: 509584657 Assessment/Plan: mild transaminitis can be due to COVID pending culture also can be medication related hepatitis panel abd us repeat labs>> stable will fu Subjective ROS Limited/Unobtainable: Yes Allergies: Coded Allergies: No Known Allergies (Unverified , 07/05/19) Objective Last 24 Hour Vital Signs Date Time Temp Pulse Resp B/P (MAP) Pulse Ox O2 Delivery O2 Flow Rate FiO2 07/07/19 04:00 97.8 84 20 134/73 (93) 96 07/07/19 04:00 2.0 07/07/19 04:00 87 07/07/19 01:53 161/103 07/07/19 00:00 97.8 84 20 161/103 (122) 97 07/07/19 00:00 84 07/07/19 00:00 2.0 07/06/19 23:07 Room Air 07/06/19 21:25 149/90 07/06/19 20:00 89 07/06/19 20:00 98.1 86 18 149/90 (109) 93 07/06/19 20:00 2.0 07/06/19 18:35 82 141/98 (112) 07/06/19 17:56 189/101 07/06/19 17:00 89 189/101 (130) 07/06/19 16:00 85 07/06/19 16:00 98.1 85 18 163/96 (118) 98 07/06/19 16:00 2.0 07/06/19 14:39 97.1 96 22 148/98 100 Nasal Cannula 2.0 07/06/19 13:16 Nasal Cannula 2.0 07/06/19 12:52 97.1 93 24 150/100 100 Nasal Cannula 2.0 07/06/19 10:09 97.1 84 20 148/98 98 Nasal Cannula 2.0 Intake and Output 07/06/19 07/07/19 19:00 07:00 Intake Total 140 ml Output Total 1500 ml Balance -1360 ml Intake Oral 140 ml Output Urine Total 1500 ml # Voids 4 Laboratory Tests 07/07/19 06:25: White Blood Count 8.9, Red Blood Count 4.95, Hemoglobin 15.7, Hematocrit 43.9, Mean Corpuscular Volume 89, Mean Corpuscular Hemoglobin 31.7H, Mean Corpuscular Hemoglobin Concent 35.8, Red Cell Distribution Width 11.9, Platelet Count 271, Mean Platelet Volume 6.6, Neutrophils (%) (Auto) 48.3, Lymphocytes (%) (Auto) 36.8, Monocytes (%) (Auto) 9.3, Eosinophils (%) (Auto) 4.6H, Basophils (%) (Auto ) 1.1, Sodium Level 141, Potassium Level 3.5, Chloride Level 107, Carbon Dioxide Level 23, Anion Gap 11, Blood Urea Nitrogen 14, Creatinine 1.0, Estimat Glomerular Filtration Rate > 60, Glucose Level 98, Calcium Level 8.7, Total Bilirubin 0.3, Aspartate Amino Transf (AST/SGOT) 41H, Alanine Aminotransferase ( ALT/SGPT) 95H, Alkaline Phosphatase 66, Troponin I 0.045, Pro-B-Type Natriuretic Peptide 74, Total Protein 6.9, Albumin 3.6, Globulin 3.3, Albumin/ Globulin Ratio 1.1, Thyroid Stimulating Hormone (TSH) 1.893, Free Thyroxine 0.74L, Hepatitis A IgM Antibody [Pending], Hepatitis B Surface Antigen [Pending] , Hepatitis B Core IgM Antibody [Pending], Hepatitis C Antibody [Pending] Height (Feet): 5 Height (Inches): 10.00 Weight (Pounds): 260 General Appearance: alert EENT: normal ENT inspection Neck: supple Cardiovascular: normal rate Respiratory/Chest: decreased breath sounds Abdomen: normal bowel sounds, non tender, soft Extremities: non-tender Yobani Ames MD Jul 07, 2019 09:31
--- NOTE | 2019-07-07 09:38 | NUR ---
*-* INSURANCE *-* ALL AVAILABLE CLINICALS HAVE BEEN FAXED TO: [facility] FAX CLINICALS TO [phone]
--- NOTE | 2019-07-07 11:05 | Cardiac Electrophysiology PN ---
Assessment/Plan Assessment/Plan 1. Recurrent SVT in the patient with history of WPW despite beta-prince therapy and 2 prior ablations at the [facility]. DC Lopressor. Start Sotalol 80 bid. Would need repeat electrophysiology study and ablation of this SVT as out patient. Will check ECG bid to monitor QT 2. Questionable pneumonia. He is afebrile. White count is normal; Off Abx. Further evaluation by ID and Dr Dexter. Subjective Subjective No more SVT. Still has manifest LEft sided bypass tract despite 2 prior ablations at the [facility] Objective Last 24 Hour Vital Signs Date Time Temp Pulse Resp B/P (MAP) Pulse Ox O2 Delivery O2 Flow Rate FiO2 07/07/19 09:35 70 152/105 07/07/19 09:00 Nasal Cannula 2.0 07/07/19 08:00 98.7 80 19 152/105 (121) 97 07/07/19 08:00 2.0 07/07/19 08:00 80 07/07/19 04:00 97.8 84 20 134/73 (93) 96 07/07/19 04:00 2.0 07/07/19 04:00 87 07/07/19 01:53 161/103 07/07/19 00:00 97.8 84 20 161/103 (122) 97 07/07/19 00:00 84 07/07/19 00:00 2.0 07/06/19 23:07 Room Air 07/06/19 21:25 149/90 07/06/19 20:00 89 07/06/19 20:00 98.1 86 18 149/90 (109) 93 07/06/19 20:00 2.0 07/06/19 18:35 82 141/98 (112) 07/06/19 17:56 189/101 07/06/19 17:00 89 189/101 (130) 07/06/19 16:00 85 07/06/19 16:00 98.1 85 18 163/96 (118) 98 07/06/19 16:00 2.0 07/06/19 14:39 97.1 96 22 148/98 100 Nasal Cannula 2.0 07/06/19 13:16 Nasal Cannula 2.0 07/06/19 12:52 97.1 93 24 150/100 100 Nasal Cannula 2.0 Intake and Output 07/06/19 07/07/19 19:00 07:00 Intake Total 140 ml Output Total 1500 ml Balance -1360 ml Intake Oral 140 ml Output Urine Total 1500 ml # Voids 4 Laboratory Tests Test 07/07/19 06:25 White Blood Count 8.9 K/UL (4.8-10.8) Red Blood Count 4.95 M/UL (4.70-6.10) Hemoglobin 15.7 G/DL (14.2-18.0) Hematocrit 43.9 % (42.0-52.0) Mean Corpuscular Volume 89 FL (80-99) Mean Corpuscular Hemoglobin 31.7 PG (27.0-31.0) H Mean Corpuscular Hemoglobin Concent 35.8 G/DL (32.0-36.0) Red Cell Distribution Width 11.9 % (11.6-14.8) Platelet Count 271 K/UL (150-450) Mean Platelet Volume 6.6 FL (6.5-10.1) Neutrophils (%) (Auto) 48.3 % (45.0-75.0) Lymphocytes (%) (Auto) 36.8 % (20.0-45.0) Monocytes (%) (Auto) 9.3 % (1.0-10.0) Eosinophils (%) (Auto) 4.6 % (0.0-3.0) H Basophils (%) (Auto) 1.1 % (0.0-2.0) Sodium Level 141 MMOL/L (136-145) Potassium Level 3.5 MMOL/L (3.5-5.1) Chloride Level 107 MMOL/L (98-107) Carbon Dioxide Level 23 MMOL/L (21-32) Anion Gap 11 mmol/L (5-15) Blood Urea Nitrogen 14 mg/dL (7-18) Creatinine 1.0 MG/DL (0.55-1.30) Estimat Glomerular Filtration Rate > 60 mL/min (>60) Glucose Level 98 MG/DL (74-106) Calcium Level 8.7 MG/DL (8.5-10.1) Total Bilirubin 0.3 MG/DL (0.2-1.0) Aspartate Amino Transf (AST/SGOT) 41 U/L (15-37) H Alanine Aminotransferase (ALT/SGPT) 95 U/L (12-78) H Alkaline Phosphatase 66 U/L (46-116) Troponin I 0.045 ng/mL (0.000-0.056) Pro-B-Type Natriuretic Peptide 74 pg/mL (0-125) Total Protein 6.9 G/DL (6.4-8.2) Albumin 3.6 G/DL (3.4-5.0) Globulin 3.3 g/dL Albumin/Globulin Ratio 1.1 (1.0-2.7) Thyroid Stimulating Hormone (TSH) 1.893 uiU/mL (0.358-3.740) Free Thyroxine 0.74 NG/DL (0.76-1.46) L Hepatitis A IgM Antibody Pending Hepatitis B Surface Antigen Pending Hepatitis B Core IgM Antibody Pending Hepatitis C Antibody Pending Objective HEAD AND NECK: No JVD. LUNGS: Clear. CARDIOVASCULAR: Regular S1 and S2 with no gallop or murmur. ABDOMEN: Soft. EXTREMITIES: No pitting edema. Diego Jones MD Jul 07, 2019 11:05
--- NOTE | 2019-07-07 11:09 | Cardiac Electrophysiology PN ---
Assessment/Plan Assessment/Plan 1. 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 DC Lopressor. Start Amiodarone 200 bid. Would need repeat electrophysiology study and ablation of this SVT as out patient. 2. HTN. Add Lisinopril 10 bid and prn clonidine 2. Questionable pneumonia. He is afebrile. White count is normal; Off Abx. Further evaluation by ID and Dr Dexter. Subjective Subjective No more SVT. Still has manifest Left sided bypass tract despite 2 prior ablations at the [facility] Objective Last 24 Hour Vital Signs Date Time Temp Pulse Resp B/P (MAP) Pulse Ox O2 Delivery O2 Flow Rate FiO2 07/07/19 09:35 70 152/105 07/07/19 09:00 Nasal Cannula 2.0 07/07/19 08:00 98.7 80 19 152/105 (121) 97 07/07/19 08:00 2.0 07/07/19 08:00 80 07/07/19 04:00 97.8 84 20 134/73 (93) 96 07/07/19 04:00 2.0 07/07/19 04:00 87 07/07/19 01:53 161/103 07/07/19 00:00 97.8 84 20 161/103 (122) 97 07/07/19 00:00 84 07/07/19 00:00 2.0 07/06/19 23:07 Room Air 07/06/19 21:25 149/90 07/06/19 20:00 89 07/06/19 20:00 98.1 86 18 149/90 (109) 93 07/06/19 20:00 2.0 07/06/19 18:35 82 141/98 (112) 07/06/19 17:56 189/101 07/06/19 17:00 89 189/101 (130) 07/06/19 16:00 85 07/06/19 16:00 98.1 85 18 163/96 (118) 98 07/06/19 16:00 2.0 07/06/19 14:39 97.1 96 22 148/98 100 Nasal Cannula 2.0 07/06/19 13:16 Nasal Cannula 2.0 07/06/19 12:52 97.1 93 24 150/100 100 Nasal Cannula 2.0 Intake and Output 07/06/19 07/07/19 19:00 07:00 Intake Total 140 ml Output Total 1500 ml Balance -1360 ml Intake Oral 140 ml Output Urine Total 1500 ml # Voids 4 Laboratory Tests Test 07/07/19 06:25 White Blood Count 8.9 K/UL (4.8-10.8) Red Blood Count 4.95 M/UL (4.70-6.10) Hemoglobin 15.7 G/DL (14.2-18.0) Hematocrit 43.9 % (42.0-52.0) Mean Corpuscular Volume 89 FL (80-99) Mean Corpuscular Hemoglobin 31.7 PG (27.0-31.0) H Mean Corpuscular Hemoglobin Concent 35.8 G/DL (32.0-36.0) Red Cell Distribution Width 11.9 % (11.6-14.8) Platelet Count 271 K/UL (150-450) Mean Platelet Volume 6.6 FL (6.5-10.1) Neutrophils (%) (Auto) 48.3 % (45.0-75.0) Lymphocytes (%) (Auto) 36.8 % (20.0-45.0) Monocytes (%) (Auto) 9.3 % (1.0-10.0) Eosinophils (%) (Auto) 4.6 % (0.0-3.0) H Basophils (%) (Auto) 1.1 % (0.0-2.0) Sodium Level 141 MMOL/L (136-145) Potassium Level 3.5 MMOL/L (3.5-5.1) Chloride Level 107 MMOL/L (98-107) Carbon Dioxide Level 23 MMOL/L (21-32) Anion Gap 11 mmol/L (5-15) Blood Urea Nitrogen 14 mg/dL (7-18) Creatinine 1.0 MG/DL (0.55-1.30) Estimat Glomerular Filtration Rate > 60 mL/min (>60) Glucose Level 98 MG/DL (74-106) Calcium Level 8.7 MG/DL (8.5-10.1) Total Bilirubin 0.3 MG/DL (0.2-1.0) Aspartate Amino Transf (AST/SGOT) 41 U/L (15-37) H Alanine Aminotransferase (ALT/SGPT) 95 U/L (12-78) H Alkaline Phosphatase 66 U/L (46-116) Troponin I 0.045 ng/mL (0.000-0.056) Pro-B-Type Natriuretic Peptide 74 pg/mL (0-125) Total Protein 6.9 G/DL (6.4-8.2) Albumin 3.6 G/DL (3.4-5.0) Globulin 3.3 g/dL Albumin/Globulin Ratio 1.1 (1.0-2.7) Thyroid Stimulating Hormone (TSH) 1.893 uiU/mL (0.358-3.740) Free Thyroxine 0.74 NG/DL (0.76-1.46) L Hepatitis A IgM Antibody Pending Hepatitis B Surface Antigen Pending Hepatitis B Core IgM Antibody Pending Hepatitis C Antibody Pending Objective HEAD AND NECK: No JVD. LUNGS: Clear. CARDIOVASCULAR: Regular S1 and S2 with no gallop or murmur. ABDOMEN: Soft. EXTREMITIES: No pitting edema. Diego Jones MD Jul 07, 2019 11:09
--- NOTE | 2019-07-07 11:27 | Pulmonology Progress Note ---
Assessment/Plan Assessment/Plan IMPRESSION: 1. Cardiac arrhythmias. 2. Dyspnea. DISCUSSION: Patient has mild transaminitis and is being seen by GI. I Currently, he is doing well on low-flow oxygen. I will follow as custody assistant. Hold off on azithromycin and Plaquenil given cardiac arrhythmias. Kwasi Dexter M.D. Subjective Interval Events: Saturating well on low flow O2 Constitutional: Reports: no symptoms HEENT: Repors: no symptoms Respiratory: Reports: no symptoms Cardiovascular: Reports: no symptoms Gastrointestinal/Abdominal: Reports: no symptoms Allergies: Coded Allergies: No Known Allergies (Unverified , 07/05/19) Objective Last 24 Hour Vital Signs Date Time Temp Pulse Resp B/P (MAP) Pulse Ox O2 Delivery O2 Flow Rate FiO2 07/07/19 09:35 70 152/105 07/07/19 09:00 Nasal Cannula 2.0 07/07/19 08:00 98.7 80 19 152/105 (121) 97 07/07/19 08:00 2.0 07/07/19 08:00 80 07/07/19 04:00 97.8 84 20 134/73 (93) 96 07/07/19 04:00 2.0 07/07/19 04:00 87 07/07/19 01:53 161/103 07/07/19 00:00 97.8 84 20 161/103 (122) 97 07/07/19 00:00 84 07/07/19 00:00 2.0 07/06/19 23:07 Room Air 07/06/19 21:25 149/90 07/06/19 20:00 89 07/06/19 20:00 98.1 86 18 149/90 (109) 93 07/06/19 20:00 2.0 07/06/19 18:35 82 141/98 (112) 07/06/19 17:56 189/101 07/06/19 17:00 89 189/101 (130) 07/06/19 16:00 85 07/06/19 16:00 98.1 85 18 163/96 (118) 98 07/06/19 16:00 2.0 07/06/19 14:39 97.1 96 22 148/98 100 Nasal Cannula 2.0 07/06/19 13:16 Nasal Cannula 2.0 07/06/19 12:52 97.1 93 24 150/100 100 Nasal Cannula 2.0 Intake and Output 07/06/19 07/07/19 19:00 07:00 Intake Total 140 ml Output Total 1500 ml Balance -1360 ml Intake Oral 140 ml Output Urine Total 1500 ml # Voids 4 General Appearance: no acute distress HEENT: normocephalic Respiratory/Chest: chest wall non-tender Cardiovascular: normal peripheral pulses Abdomen: normal bowel sounds Laboratory Tests 07/07/19 06:25: White Blood Count 8.9, Red Blood Count 4.95, Hemoglobin 15.7, Hematocrit 43.9, Mean Corpuscular Volume 89, Mean Corpuscular Hemoglobin 31.7H, Mean Corpuscular Hemoglobin Concent 35.8, Red Cell Distribution Width 11.9, Platelet Count 271, Mean Platelet Volume 6.6, Neutrophils (%) (Auto) 48.3, Lymphocytes (%) (Auto) 36.8, Monocytes (%) (Auto) 9.3, Eosinophils (%) (Auto) 4.6H, Basophils (%) (Auto ) 1.1, Sodium Level 141, Potassium Level 3.5, Chloride Level 107, Carbon Dioxide Level 23, Anion Gap 11, Blood Urea Nitrogen 14, Creatinine 1.0, Estimat Glomerular Filtration Rate > 60, Glucose Level 98, Calcium Level 8.7, Total Bilirubin 0.3, Aspartate Amino Transf (AST/SGOT) 41H, Alanine Aminotransferase ( ALT/SGPT) 95H, Alkaline Phosphatase 66, Troponin I 0.045, Pro-B-Type Natriuretic Peptide 74, Total Protein 6.9, Albumin 3.6, Globulin 3.3, Albumin/ Globulin Ratio 1.1, Thyroid Stimulating Hormone (TSH) 1.893, Free Thyroxine 0.74L, Hepatitis A IgM Antibody [Pending], Hepatitis B Surface Antigen [Pending] , Hepatitis B Core IgM Antibody [Pending], Hepatitis C Antibody [Pending] Current Medications Medications (Trade) Dose Ordered Sig/Mayur Route PRN Reason Start Time Stop Time Status Last Admin Dose Admin Amiodarone HCl (Cordarone) 200 mg EVERY 12 HOURS ORAL 07/07/19 21:00 10/05/19 20:59 Clonidine HCl (Catapres Tab) 0.1 mg Q2H PRN ORAL For High Blood Pressure 07/06/19 17:45 10/04/19 17:44 07/07/19 01:53 Lisinopril (ZestriL) 10 mg BID ORAL 07/07/19 18:00 08/06/19 17:59 Sodium Chloride 1,000 ml @ 55 mls/hr [id number] IV 07/06/19 02:00 08/05/19 01:59 07/06/19 21:28 Kwasi Dexter MD Jul 07, 2019 11:27
--- NOTE | 2019-07-07 12:06 | Infectious Diseases Prog Note ---
Assessment/Plan Assessment/Plan IMPRESSION: 1. Leukocytosis, resolved. 2. Questionable pneumonia. 3. Supraventricular tachycardia. 4. Elevated transaminase level. RECOMMENDATION: observe off antibiotic, will follow up COVID test. We will repeat checks x-ray Subjective ROS Limited/Unobtainable: No Respiratory: Reports: no symptoms Gastrointestinal/Abdominal: Reports: no symptoms Genitourinary: Reports: no symptoms Neurologic: Reports: no symptoms Allergies: Coded Allergies: No Known Allergies (Unverified , 07/05/19) Objective Vital Signs Last 24 Hour Vital Signs Date Time Temp Pulse Resp B/P (MAP) Pulse Ox O2 Delivery O2 Flow Rate FiO2 07/07/19 11:48 172/104 07/07/19 09:35 70 152/105 07/07/19 09:00 Nasal Cannula 2.0 07/07/19 08:00 98.7 80 19 152/105 (121) 97 07/07/19 08:00 2.0 07/07/19 08:00 80 07/07/19 04:00 97.8 84 20 134/73 (93) 96 07/07/19 04:00 2.0 07/07/19 04:00 87 07/07/19 01:53 161/103 07/07/19 00:00 97.8 84 20 161/103 (122) 97 07/07/19 00:00 84 07/07/19 00:00 2.0 07/06/19 23:07 Room Air 07/06/19 21:25 149/90 07/06/19 20:00 89 07/06/19 20:00 98.1 86 18 149/90 (109) 93 07/06/19 20:00 2.0 07/06/19 18:35 82 141/98 (112) 07/06/19 17:56 189/101 07/06/19 17:00 89 189/101 (130) 07/06/19 16:00 85 07/06/19 16:00 98.1 85 18 163/96 (118) 98 07/06/19 16:00 2.0 07/06/19 14:39 97.1 96 22 148/98 100 Nasal Cannula 2.0 07/06/19 13:16 Nasal Cannula 2.0 07/06/19 12:52 97.1 93 24 150/100 100 Nasal Cannula 2.0 Height (Feet): 5 Height (Inches): 10.00 Weight (Pounds): 260 General Appearance: no acute distress HEENT: mucous membranes moist Respiratory/Chest: lungs clear Cardiovascular: normal rate Abdomen: soft, non tender Extremities: no edema Neurologic/Psychiatric: alert, oriented x 3, responsive Laboratory Tests Test 07/07/19 06:25 White Blood Count 8.9 K/UL (4.8-10.8) Red Blood Count 4.95 M/UL (4.70-6.10) Hemoglobin 15.7 G/DL (14.2-18.0) Hematocrit 43.9 % (42.0-52.0) Mean Corpuscular Volume 89 FL (80-99) Mean Corpuscular Hemoglobin 31.7 PG (27.0-31.0) H Mean Corpuscular Hemoglobin Concent 35.8 G/DL (32.0-36.0) Red Cell Distribution Width 11.9 % (11.6-14.8) Platelet Count 271 K/UL (150-450) Mean Platelet Volume 6.6 FL (6.5-10.1) Neutrophils (%) (Auto) 48.3 % (45.0-75.0) Lymphocytes (%) (Auto) 36.8 % (20.0-45.0) Monocytes (%) (Auto) 9.3 % (1.0-10.0) Eosinophils (%) (Auto) 4.6 % (0.0-3.0) H Basophils (%) (Auto) 1.1 % (0.0-2.0) Sodium Level 141 MMOL/L (136-145) Potassium Level 3.5 MMOL/L (3.5-5.1) Chloride Level 107 MMOL/L (98-107) Carbon Dioxide Level 23 MMOL/L (21-32) Anion Gap 11 mmol/L (5-15) Blood Urea Nitrogen 14 mg/dL (7-18) Creatinine 1.0 MG/DL (0.55-1.30) Estimat Glomerular Filtration Rate > 60 mL/min (>60) Glucose Level 98 MG/DL (74-106) Calcium Level 8.7 MG/DL (8.5-10.1) Total Bilirubin 0.3 MG/DL (0.2-1.0) Aspartate Amino Transf (AST/SGOT) 41 U/L (15-37) H Alanine Aminotransferase (ALT/SGPT) 95 U/L (12-78) H Alkaline Phosphatase 66 U/L (46-116) Troponin I 0.045 ng/mL (0.000-0.056) Pro-B-Type Natriuretic Peptide 74 pg/mL (0-125) Total Protein 6.9 G/DL (6.4-8.2) Albumin 3.6 G/DL (3.4-5.0) Globulin 3.3 g/dL Albumin/Globulin Ratio 1.1 (1.0-2.7) Thyroid Stimulating Hormone (TSH) 1.893 uiU/mL (0.358-3.740) Free Thyroxine 0.74 NG/DL (0.76-1.46) L Hepatitis A IgM Antibody Pending Hepatitis B Surface Antigen Pending Hepatitis B Core IgM Antibody Pending Hepatitis C Antibody Pending Current Medications Medications (Trade) Dose Ordered Sig/Mayur Route PRN Reason Start Time Stop Time Status Last Admin Dose Admin Amiodarone HCl (Cordarone) 200 mg EVERY 12 HOURS ORAL 07/07/19 21:00 10/05/19 20:59 Clonidine HCl (Catapres Tab) 0.1 mg Q2H PRN ORAL For High Blood Pressure 07/06/19 17:45 10/04/19 17:44 07/07/19 11:48 Lisinopril (ZestriL) 10 mg BID ORAL 07/07/19 18:00 08/06/19 17:59 Sodium Chloride 1,000 ml @ 55 mls/hr [id number] IV 07/06/19 02:00 08/05/19 01:59 07/06/19 21:28 Marvel Pantoja MD Jul 07, 2019 12:06
--- NOTE | 2019-07-07 15:09 | NUR ---
RADIOLOGY DEPT., CHEST X-RAY DONE.-P.DYE
--- NOTE | 2019-07-07 15:30 | NUR ---
CASE MANAGEMENT:REVIEW 33 YR OLD MALE PRESENTED TO ER CC: HYPERTENSION. FAST HEART RATE SI: PNEUMONIA. SVT. R/O COVID 19 97.1 110 24 150/101 81% ON RA WBC+11.2 IS: PLACED ON 2L/NC IV LABETALOL X1 CXR COVID 19 : TO TELEMETRY IS: AMIODARONE PO Q12 LISINOPRIL PO BID IVF@55/HR
--- NOTE | 2019-07-07 15:32 | Diagnostic Imaging Report ---
Indication: Cough Technique: One view of the chest Comparison: 07/05/2019 Findings: The left costophrenic sulcus is cut off exam. Lungs and pleural spaces are clear. The heart size is normal. Previously demonstrated right upper lung hazy opacity is not evident currently Impression: No acute process
[2019-07-07] MEDS: Lisinopril 10mg tab ORAL SCH (17:32)
[2019-07-07] MEDS ORDERED: Sotalol 80mg tab ORAL SCH (18:00)
--- NOTE | 2019-07-07 19:00 | NUR ---
HAND-OFF: Report given to Tisha SPEARS. BP elevated, MD aware. Patient is in stable condition.
--- NOTE | 2019-07-07 19:06 | NUR ---
NURSE NOTES: Received report from [facility] Up. Patient is on bed, awake, alert and oriented x 4. Patient is on cardiac diet-instructed. ekg monitor tech is on shows sinus rhythm and no signs and symptoms of respiratory distress noted at this time. Patient is on room air, with no complaints made at the moment. IV site is on right AC g-20 running fluid of 1/2 normal saline @ 50 cc/hour that is intact and asymptomatic. Patient is ambulatory but standby assist. Safety measures are in placed, call light and bedside table within reach, side rails up x 2, bed alarm is on. Bed in low and locked position. Instructed to call for any assistance needed. Will continue plan of care.
--- NOTE | 2019-07-07 20:31 | General Progress Note ---
Assessment/Plan Problem List: (1) Elevated LFTs ICD Codes: R79.89 - Other specified abnormal findings of blood chemistry SNOMED: 430654904, 194662423 (2) Suspected COVID-19 virus infection ICD Codes: R68.89 - Other general symptoms and signs SNOMED: 147828495 (3) SVT (supraventricular tachycardia) ICD Codes: I47.1 - Supraventricular tachycardia SNOMED: 2141291 (4) Pneumonia ICD Codes: J18.9 - Pneumonia, unspecified organism SNOMED: 813612532 Status: progressing Assessment/Plan: svt improving afebrile r/o covid elevated lft repeat lft no cp Subjective ROS Limited/Unobtainable: Yes Allergies: Coded Allergies: No Known Allergies (Unverified , 07/05/19) Objective Last 24 Hour Vital Signs Date Time Temp Pulse Resp B/P (MAP) Pulse Ox O2 Delivery O2 Flow Rate FiO2 07/07/19 18:30 85 160/103 (122) 07/07/19 17:32 159/107 07/07/19 17:32 172/101 07/07/19 17:30 88 172/101 (124) 07/07/19 16:00 2.0 07/07/19 16:00 83 07/07/19 16:00 97.6 83 20 159/107 (124) 97 07/07/19 12:00 2.0 07/07/19 12:00 74 07/07/19 12:00 98.6 74 20 160/98 (118) 98 07/07/19 11:48 172/104 07/07/19 09:35 70 152/105 07/07/19 09:00 Nasal Cannula 2.0 07/07/19 08:00 98.7 80 19 152/105 (121) 97 07/07/19 08:00 2.0 07/07/19 08:00 80 07/07/19 04:00 97.8 84 20 134/73 (93) 96 07/07/19 04:00 2.0 07/07/19 04:00 87 07/07/19 01:53 161/103 07/07/19 00:00 97.8 84 20 161/103 (122) 97 07/07/19 00:00 84 07/07/19 00:00 2.0 07/06/19 23:07 Room Air 07/06/19 21:25 149/90 Intake and Output 07/06/19 07/07/19 19:00 07:00 Intake Total 140 ml Output Total 1500 ml Balance -1360 ml Intake Oral 140 ml Output Urine Total 1500 ml # Voids 4 Laboratory Tests 07/07/19 06:25: White Blood Count 8.9, Red Blood Count 4.95, Hemoglobin 15.7, Hematocrit 43.9, Mean Corpuscular Volume 89, Mean Corpuscular Hemoglobin 31.7H, Mean Corpuscular Hemoglobin Concent 35.8, Red Cell Distribution Width 11.9, Platelet Count 271, Mean Platelet Volume 6.6, Neutrophils (%) (Auto) 48.3, Lymphocytes (%) (Auto) 36.8, Monocytes (%) (Auto) 9.3, Eosinophils (%) (Auto) 4.6H, Basophils (%) (Auto ) 1.1, Sodium Level 141, Potassium Level 3.5, Chloride Level 107, Carbon Dioxide Level 23, Anion Gap 11, Blood Urea Nitrogen 14, Creatinine 1.0, Estimat Glomerular Filtration Rate > 60, Glucose Level 98, Calcium Level 8.7, Total Bilirubin 0.3, Aspartate Amino Transf (AST/SGOT) 41H, Alanine Aminotransferase ( ALT/SGPT) 95H, Alkaline Phosphatase 66, Troponin I 0.045, Pro-B-Type Natriuretic Peptide 74, Total Protein 6.9, Albumin 3.6, Globulin 3.3, Albumin/ Globulin Ratio 1.1, Thyroid Stimulating Hormone (TSH) 1.893, Free Thyroxine 0.74L, Hepatitis A IgM Antibody [Pending], Hepatitis B Surface Antigen [Pending] , Hepatitis B Core IgM Antibody [Pending], Hepatitis C Antibody [Pending] Height (Feet): 5 Height (Inches): 10.00 Weight (Pounds): 260 Garrett Zavala MD Jul 07, 2019 20:31
[2019-07-07] MEDS: Amiodarone 200mg tab ORAL SCH (20:47)
[2019-07-08] VITALS: BP 153/89
[2019-07-08 04:00] VITALS: BP 142/98
--- NOTE | 2019-07-08 06:50 | NUR ---
NURSE NOTES: Relayed result of covid test to Dr. Francis Pantoja, awaiting for call back.
[2019-07-08 06:57] LABS: EOSINOPHILS % (AUTO) 4.2 % (0.0-3.0); HEMATOCRIT 45.2 % (42.0-52.0); HEMOGLOBIN 16.1 G/DL (14.2-18.0); LYMPHOCYTES % (AUTO) 33.4 % (20.0-45.0); MEAN CORPUSCULAR VOLUME 88 FL (80-99); MONOCYTES % (AUTO) 8.5 % (1.0-10.0); NEUTROPHILS % (AUTO) 52.9 % (45.0-75.0); PLATELET COUNT 284 K/UL (150-450); RED BLOOD COUNT 5.16 M/UL (4.70-6.10); RED CELL DISTRIBUTION WIDTH 11.6 % (11.6-14.8); WHITE BLOOD COUNT 8.7 K/UL (4.8-10.8)
--- NOTE | 2019-07-08 07:03 | General Progress Note ---
Assessment/Plan Problem List: (1) Elevated LFTs ICD Codes: R79.89 - Other specified abnormal findings of blood chemistry SNOMED: 509230595, 713868007 (2) SVT (supraventricular tachycardia) ICD Codes: I47.1 - Supraventricular tachycardia SNOMED: 2652132 (3) Pneumonia ICD Codes: J18.9 - Pneumonia, unspecified organism SNOMED: 446756611 (4) Suspected COVID-19 virus infection ICD Codes: R68.89 - Other general symptoms and signs SNOMED: 816445570 Status: progressing Assessment/Plan: mild transaminitis can be medication related COVID neg x1 hepatitis panel>>> neg abd us>>> pending repeat labs>> stable will fu Subjective Allergies: Coded Allergies: No Known Allergies (Unverified , 07/05/19) Objective Last 24 Hour Vital Signs Date Time Temp Pulse Resp B/P (MAP) Pulse Ox O2 Delivery O2 Flow Rate FiO2 07/08/19 04:56 153/89 07/08/19 04:00 85 07/08/19 04:00 97.7 77 20 142/98 (113) 94 07/08/19 00:00 85 07/08/19 00:00 97.9 84 20 153/89 (110) 96 07/07/19 23:51 Room Air 07/07/19 20:47 152/90 07/07/19 20:00 70 07/07/19 20:00 98.6 78 20 161/105 (123) 98 07/07/19 18:30 85 160/103 (122) 07/07/19 17:32 159/107 07/07/19 17:32 172/101 07/07/19 17:30 88 172/101 (124) 07/07/19 16:00 2.0 07/07/19 16:00 83 07/07/19 16:00 97.6 83 20 159/107 (124) 97 07/07/19 12:00 2.0 07/07/19 12:00 74 07/07/19 12:00 98.6 74 20 160/98 (118) 98 07/07/19 11:48 172/104 07/07/19 09:35 70 152/105 07/07/19 09:00 Nasal Cannula 2.0 07/07/19 08:00 98.7 80 19 152/105 (121) 97 07/07/19 08:00 2.0 07/07/19 08:00 80 Intake and Output 07/07/19 07/08/19 19:00 07:00 Intake Total 195 ml 1940 ml Output Total 1200 ml 1200 ml Balance -1005 ml 740 ml Intake Oral 140 ml 1500 ml IV Total 55 ml 440 ml Output Urine Total 1200 ml 1200 ml # Voids 3 4 Laboratory Tests 07/08/19 05:20: White Blood Count 8.7, Red Blood Count 5.16, Hemoglobin 16.1, Hematocrit 45.2, Mean Corpuscular Volume 88, Mean Corpuscular Hemoglobin 31.1H, Mean Corpuscular Hemoglobin Concent 35.5, Red Cell Distribution Width 11.6, Platelet Count 284, Mean Platelet Volume 6.4L, Neutrophils (%) (Auto) 52.9, Lymphocytes (%) (Auto) 33.4, Monocytes (%) (Auto) 8.5, Eosinophils (%) (Auto) 4.2H, Basophils (%) (Auto ) 1.0, Sodium Level [Pending], Potassium Level [Pending], Chloride Level [ Pending], Carbon Dioxide Level [Pending], Blood Urea Nitrogen [Pending], Creatinine [Pending], Estimat Glomerular Filtration Rate [Pending], Glucose Level [Pending], Calcium Level [Pending], Total Bilirubin [Pending], Aspartate Amino Transf (AST/SGOT) [Pending], Alanine Aminotransferase (ALT/SGPT) [Pending] , Alkaline Phosphatase [Pending], Total Protein [Pending], Albumin [Pending], Globulin [Pending] Height (Feet): 5 Height (Inches): 10.00 Weight (Pounds): 260 General Appearance: alert EENT: normal ENT inspection Neck: supple Cardiovascular: normal rate Respiratory/Chest: decreased breath sounds Abdomen: normal bowel sounds, non tender, soft Extremities: non-tender Yobani Ames MD Jul 08, 2019 07:03
--- NOTE | 2019-07-08 07:05 | NUR ---
HAND-OFF: Report given to [facility] Up. Patient is on bed on stable condition. RN made aware of covid result and follow-up 2DECHO and whole abdomen ultrasound later this day. Plan of care endorsed.
--- NOTE | 2019-07-08 07:14 | NUR ---
NURSE NOTES: Received patient from [facility] in bed AAO X4, denies any pain at this time, no s/s of respiratory distress noted. IV is intact and patent, NS running at 55mls/hr and tolerating well. Covid-19 result is negative. Bed is in lowest position, brakes engaged for safety. Call light is within reach. Will continue with the plan of care.
[2019-07-08 07:27] LABS: ALANINE AMINOTRANSFERASE 130 U/L (12-78); ALBUMIN 3.8 G/DL (3.4-5.0); ALBUMIN/GLOBULIN RATIO 1.1 (1.0-2.7); ALKALINE PHOSPHATASE 67 U/L (46-116); ANION GAP 13 mmol/L (5-15); ASPARTATE AMINO TRANSFERASE 60 U/L (15-37); BILIRUBIN,TOTAL 0.3 MG/DL (0.2-1.0); BLOOD UREA NITROGEN 10 mg/dL (7-18); CALCIUM 8.3 MG/DL (8.5-10.1); CARBON DIOXIDE 22 MMOL/L (21-32); CHLORIDE 105 MMOL/L (98-107); CREATININE 0.8 MG/DL (0.55-1.30); POTASSIUM 3.3 MMOL/L (3.5-5.1); SODIUM 140 MMOL/L (136-145)
[2019-07-08 08:00] VITALS: BP 134/99
[2019-07-08] MEDS: Lisinopril 10mg tab ORAL SCH (08:30)
[2019-07-08] MEDS: Amiodarone 200mg tab ORAL SCH (08:30)
--- NOTE | 2019-07-08 11:00 | Pulmonology Progress Note ---
Assessment/Plan Assessment/Plan IMPRESSION: 1. Cardiac arrhythmias. 2. Dyspnea. DISCUSSION: Patient has mild transaminitis and is being seen by GI. I Currently, he is doing well on low-flow oxygen. I will follow as molder trimmer. Hold off on azithromycin and Plaquenil given cardiac arrhythmias. Kwasi Dexter M.D. Subjective Interval Events: None new Constitutional: Reports: no symptoms HEENT: Repors: no symptoms Respiratory: Reports: no symptoms Cardiovascular: Reports: no symptoms Allergies: Coded Allergies: No Known Allergies (Unverified , 07/05/19) Objective Last 24 Hour Vital Signs Date Time Temp Pulse Resp B/P (MAP) Pulse Ox O2 Delivery O2 Flow Rate FiO2 07/08/19 09:00 Room Air 07/08/19 08:30 134/99 07/08/19 08:00 97.6 71 19 134/99 (111) 96 07/08/19 08:00 71 07/08/19 04:56 153/89 07/08/19 04:00 85 07/08/19 04:00 97.7 77 20 142/98 (113) 94 07/08/19 00:00 85 07/08/19 00:00 97.9 84 20 153/89 (110) 96 07/07/19 23:51 Room Air 07/07/19 20:47 152/90 07/07/19 20:00 70 07/07/19 20:00 98.6 78 20 161/105 (123) 98 07/07/19 18:30 85 160/103 (122) 07/07/19 17:32 159/107 07/07/19 17:32 172/101 07/07/19 17:30 88 172/101 (124) 07/07/19 16:00 2.0 07/07/19 16:00 83 07/07/19 16:00 97.6 83 20 159/107 (124) 97 07/07/19 12:00 2.0 07/07/19 12:00 74 07/07/19 12:00 98.6 74 20 160/98 (118) 98 07/07/19 11:48 172/104 Intake and Output 07/07/19 07/08/19 19:00 07:00 Intake Total 195 ml 1940 ml Output Total 1200 ml 1200 ml Balance -1005 ml 740 ml Intake Oral 140 ml 1500 ml IV Total 55 ml 440 ml Output Urine Total 1200 ml 1200 ml # Voids 3 4 General Appearance: no acute distress HEENT: normocephalic Respiratory/Chest: chest wall non-tender, lungs clear Cardiovascular: normal peripheral pulses Abdomen: normal bowel sounds Microbiology Date/Time Source Procedure Growth Status 07/06/19 06:30 Nasopharynx Coronavirus COVID-19 PCR ([facility]) - Final Complete Laboratory Tests 07/08/19 05:20: White Blood Count 8.7, Red Blood Count 5.16, Hemoglobin 16.1, Hematocrit 45.2, Mean Corpuscular Volume 88, Mean Corpuscular Hemoglobin 31.1H, Mean Corpuscular Hemoglobin Concent 35.5, Red Cell Distribution Width 11.6, Platelet Count 284, Mean Platelet Volume 6.4L, Neutrophils (%) (Auto) 52.9, Lymphocytes (%) (Auto) 33.4, Monocytes (%) (Auto) 8.5, Eosinophils (%) (Auto) 4.2H, Basophils (%) (Auto ) 1.0, Sodium Level 140, Potassium Level 3.3L, Chloride Level 105, Carbon Dioxide Level 22, Anion Gap 13, Blood Urea Nitrogen 10, Creatinine 0.8, Estimat Glomerular Filtration Rate > 60, Glucose Level 87, Calcium Level 8.3L, Total Bilirubin 0.3, Aspartate Amino Transf (AST/SGOT) 60H, Alanine Aminotransferase ( ALT/SGPT) 130H, Alkaline Phosphatase 67, Total Protein 7.2, Albumin 3.8, Globulin 3.4, Albumin/Globulin Ratio 1.1 Current Medications Medications (Trade) Dose Ordered Sig/Mayur Route PRN Reason Start Time Stop Time Status Last Admin Dose Admin Amiodarone HCl (Cordarone) 200 mg EVERY 12 HOURS ORAL 07/07/19 21:00 10/05/19 20:59 07/08/19 08:30 Clonidine HCl (Catapres Tab) 0.1 mg Q2H PRN ORAL For High Blood Pressure 07/06/19 17:45 10/04/19 17:44 07/08/19 04:56 Lisinopril (ZestriL) 10 mg BID ORAL 07/07/19 18:00 08/06/19 17:59 07/08/19 08:30 Sodium Chloride 1,000 ml @ 55 mls/hr [id number] IV 07/06/19 02:00 08/05/19 01:59 07/07/19 18:05 Kwasi Dexter MD Jul 08, 2019 11:00
--- NOTE | 2019-07-08 11:28 | Cardiac Electrophysiology PN ---
Assessment/Plan Assessment/Plan 1. 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 On Amiodarone 200 daily. Would need repeat electrophysiology study and ablation of this SVT as out patient. 2. HTN. On Lisinopril 10 bid and prn clonidine 2. Questionable pneumonia. He is afebrile. White count is normal; Off Abx. Further evaluation by ID and Dr Dexter. Subjective Subjective No more SVT. Still has manifest Left sided bypass tract despite 2 prior ablations at the [facility]. On Amiodarone. Objective Last 24 Hour Vital Signs Date Time Temp Pulse Resp B/P (MAP) Pulse Ox O2 Delivery O2 Flow Rate FiO2 07/08/19 09:00 Room Air 07/08/19 08:30 134/99 07/08/19 08:00 97.6 71 19 134/99 (111) 96 07/08/19 08:00 71 07/08/19 04:56 153/89 07/08/19 04:00 85 07/08/19 04:00 97.7 77 20 142/98 (113) 94 07/08/19 00:00 85 07/08/19 00:00 97.9 84 20 153/89 (110) 96 07/07/19 23:51 Room Air 07/07/19 20:47 152/90 07/07/19 20:00 70 07/07/19 20:00 98.6 78 20 161/105 (123) 98 07/07/19 18:30 85 160/103 (122) 07/07/19 17:32 159/107 07/07/19 17:32 172/101 07/07/19 17:30 88 172/101 (124) 07/07/19 16:00 2.0 07/07/19 16:00 83 07/07/19 16:00 97.6 83 20 159/107 (124) 97 07/07/19 12:00 2.0 07/07/19 12:00 74 07/07/19 12:00 98.6 74 20 160/98 (118) 98 07/07/19 11:48 172/104 Intake and Output 07/07/19 07/08/19 19:00 07:00 Intake Total 195 ml 1940 ml Output Total 1200 ml 1200 ml Balance -1005 ml 740 ml Intake Oral 140 ml 1500 ml IV Total 55 ml 440 ml Output Urine Total 1200 ml 1200 ml # Voids 3 4 Laboratory Tests Test 07/08/19 05:20 White Blood Count 8.7 K/UL (4.8-10.8) Red Blood Count 5.16 M/UL (4.70-6.10) Hemoglobin 16.1 G/DL (14.2-18.0) Hematocrit 45.2 % (42.0-52.0) Mean Corpuscular Volume 88 FL (80-99) Mean Corpuscular Hemoglobin 31.1 PG (27.0-31.0) H Mean Corpuscular Hemoglobin Concent 35.5 G/DL (32.0-36.0) Red Cell Distribution Width 11.6 % (11.6-14.8) Platelet Count 284 K/UL (150-450) Mean Platelet Volume 6.4 FL (6.5-10.1) L Neutrophils (%) (Auto) 52.9 % (45.0-75.0) Lymphocytes (%) (Auto) 33.4 % (20.0-45.0) Monocytes (%) (Auto) 8.5 % (1.0-10.0) Eosinophils (%) (Auto) 4.2 % (0.0-3.0) H Basophils (%) (Auto) 1.0 % (0.0-2.0) Sodium Level 140 MMOL/L (136-145) Potassium Level 3.3 MMOL/L (3.5-5.1) L Chloride Level 105 MMOL/L (98-107) Carbon Dioxide Level 22 MMOL/L (21-32) Anion Gap 13 mmol/L (5-15) Blood Urea Nitrogen 10 mg/dL (7-18) Creatinine 0.8 MG/DL (0.55-1.30) Estimat Glomerular Filtration Rate > 60 mL/min (>60) Glucose Level 87 MG/DL (74-106) Calcium Level 8.3 MG/DL (8.5-10.1) L Total Bilirubin 0.3 MG/DL (0.2-1.0) Aspartate Amino Transf (AST/SGOT) 60 U/L (15-37) H Alanine Aminotransferase (ALT/SGPT) 130 U/L (12-78) H Alkaline Phosphatase 67 U/L (46-116) Total Protein 7.2 G/DL (6.4-8.2) Albumin 3.8 G/DL (3.4-5.0) Globulin 3.4 g/dL Albumin/Globulin Ratio 1.1 (1.0-2.7) Microbiology Date/Time Source Procedure Growth Status 07/06/19 06:30 Nasopharynx Coronavirus COVID-19 PCR ([facility]ANIA) - Final Complete Objective HEAD AND NECK: No JVD. LUNGS: Clear. CARDIOVASCULAR: Regular S1 and S2 with no gallop or murmur. ABDOMEN: Soft. EXTREMITIES: No pitting edema. Diego Jones MD Jul 08, 2019 11:28
[2019-07-08 12:00] VITALS: BP 154/105
--- NOTE | 2019-07-08 12:12 | NUR ---
*-* INSURANCE *-* ALL AVAILABLE CLINICALS HAVE BEEN FAXED TO: [facility] FAX CLINICALS TO [phone]
--- NOTE | 2019-07-08 12:13 | Infectious Diseases Prog Note ---
Assessment/Plan Assessment/Plan IMPRESSION: 1. Leukocytosis, resolved. 2. Questionable pneumonia. 3. Supraventricular tachycardia. 4. Elevated transaminase level. RECOMMENDATION: observe off antibiotic, COVID test: negative repeated chest x-ray: negative Discontinue isolation Subjective ROS Limited/Unobtainable: No Constitutional: Reports: no symptoms Respiratory: Reports: no symptoms Cardiovascular: Reports: no symptoms Gastrointestinal/Abdominal: Reports: no symptoms Genitourinary: Reports: no symptoms Allergies: Coded Allergies: No Known Allergies (Unverified , 07/05/19) Objective Vital Signs Last 24 Hour Vital Signs Date Time Temp Pulse Resp B/P (MAP) Pulse Ox O2 Delivery O2 Flow Rate FiO2 07/08/19 09:00 Room Air 07/08/19 08:30 134/99 07/08/19 08:00 97.6 71 19 134/99 (111) 96 07/08/19 08:00 71 07/08/19 04:56 153/89 07/08/19 04:00 85 07/08/19 04:00 97.7 77 20 142/98 (113) 94 07/08/19 00:00 85 07/08/19 00:00 97.9 84 20 153/89 (110) 96 07/07/19 23:51 Room Air 07/07/19 20:47 152/90 07/07/19 20:00 70 07/07/19 20:00 98.6 78 20 161/105 (123) 98 07/07/19 18:30 85 160/103 (122) 07/07/19 17:32 159/107 07/07/19 17:32 172/101 07/07/19 17:30 88 172/101 (124) 07/07/19 16:00 2.0 07/07/19 16:00 83 07/07/19 16:00 97.6 83 20 159/107 (124) 97 Height (Feet): 5 Height (Inches): 10.00 Weight (Pounds): 260 General Appearance: no acute distress HEENT: mucous membranes moist Respiratory/Chest: lungs clear Cardiovascular: normal rate Abdomen: soft, non tender Extremities: no edema Neurologic/Psychiatric: alert, oriented x 3, responsive Microbiology Date/Time Source Procedure Growth Status 07/06/19 06:30 Nasopharynx Coronavirus COVID-19 PCR ([facility]ANIA) - Final Complete Laboratory Tests Test 07/08/19 05:20 White Blood Count 8.7 K/UL (4.8-10.8) Red Blood Count 5.16 M/UL (4.70-6.10) Hemoglobin 16.1 G/DL (14.2-18.0) Hematocrit 45.2 % (42.0-52.0) Mean Corpuscular Volume 88 FL (80-99) Mean Corpuscular Hemoglobin 31.1 PG (27.0-31.0) H Mean Corpuscular Hemoglobin Concent 35.5 G/DL (32.0-36.0) Red Cell Distribution Width 11.6 % (11.6-14.8) Platelet Count 284 K/UL (150-450) Mean Platelet Volume 6.4 FL (6.5-10.1) L Neutrophils (%) (Auto) 52.9 % (45.0-75.0) Lymphocytes (%) (Auto) 33.4 % (20.0-45.0) Monocytes (%) (Auto) 8.5 % (1.0-10.0) Eosinophils (%) (Auto) 4.2 % (0.0-3.0) H Basophils (%) (Auto) 1.0 % (0.0-2.0) Sodium Level 140 MMOL/L (136-145) Potassium Level 3.3 MMOL/L (3.5-5.1) L Chloride Level 105 MMOL/L (98-107) Carbon Dioxide Level 22 MMOL/L (21-32) Anion Gap 13 mmol/L (5-15) Blood Urea Nitrogen 10 mg/dL (7-18) Creatinine 0.8 MG/DL (0.55-1.30) Estimat Glomerular Filtration Rate > 60 mL/min (>60) Glucose Level 87 MG/DL (74-106) Calcium Level 8.3 MG/DL (8.5-10.1) L Total Bilirubin 0.3 MG/DL (0.2-1.0) Aspartate Amino Transf (AST/SGOT) 60 U/L (15-37) H Alanine Aminotransferase (ALT/SGPT) 130 U/L (12-78) H Alkaline Phosphatase 67 U/L (46-116) Total Protein 7.2 G/DL (6.4-8.2) Albumin 3.8 G/DL (3.4-5.0) Globulin 3.4 g/dL Albumin/Globulin Ratio 1.1 (1.0-2.7) Current Medications Medications (Trade) Dose Ordered Sig/Mayur Route PRN Reason Start Time Stop Time Status Last Admin Dose Admin Amiodarone HCl (Cordarone) 200 mg DAILY ORAL 07/09/19 09:00 10/05/19 20:59 Clonidine HCl (Catapres Tab) 0.1 mg Q2H PRN ORAL For High Blood Pressure 07/06/19 17:45 10/04/19 17:44 07/08/19 04:56 Lisinopril (ZestriL) 10 mg BID ORAL 07/07/19 18:00 08/06/19 17:59 07/08/19 08:30 Sodium Chloride 1,000 ml @ 55 mls/hr [id number] IV 07/06/19 02:00 08/05/19 01:59 07/07/19 18:05 Marvel Pantoja MD Jul 08, 2019 12:13
--- NOTE | 2019-07-08 13:10 | Diagnostic Imaging Report ---
Indication: Abdominal pain, abnormal liver function tests Technique: Mccauley-scale and duplex images of the upper abdomen were obtained Comparison: none Findings: Gallbladder demonstrates gallstones. No gallbladder wall thickening nor pericholecystic fluid. Sonographic Sy's sign is negative. Common bile duct measures 5 mm in diameter. No intrahepatic biliary ductal dilatation. Liver demonstrates diffusely increased echogenicity, consistent with diffuse hepatocellular disease, most likely fatty change. It is enlarged, long axis sagittal dimension 18 cm. Portal vein and hepatic veins are patent. Pancreas is unremarkable. The spleen is enlarged, measuring 13.8 cm long axis dimension Left kidney measures 12 cm in length. Right kidney measures 10.9 cm length. Both kidneys demonstrate normal echogenicity. There is no hydronephrosis. No focal abnormality . Non-aneurysmal abdominal aorta . Impression: Cholelithiasis. Negative for dilated bile ducts Enlarged liver Liver demonstrates diffusely increased echogenicity, consistent with diffuse hepatocellular disease, most likely fatty change. Splenomegaly
--- NOTE | 2019-07-08 14:11 | NUR ---
CASE MANAGEMENT:REVIEW 07/08/19 SI: CARDIAC ARRHYTHMIAS COVID 19 NOT DETECTED 97.6 76 20 154/105 96% ON RA K-3.3 IS: AMIODARONE PO QD LISINOPRIL PO BID CLONIDINE PO Q2HRS PRN : TELEMETRY STATUS DCP: FROM HOME PLAN: DISCHARGE HOME TODAY
--- NOTE | 2019-07-08 15:47 | NUR ---
NURSE NOTES: Patient is discharged home per MD order via private vehicle. IV removed, no bleeding, no infiltration noted. machine splitter removed. All discharge protocols followed and carried out. Notified next of kin of patient's discharged. Patient is in stable condition.
[2019-07-09] MEDS ORDERED: Amiodarone 200mg tab ORAL SCH (09:00)
--- NOTE | 2019-07-10 12:33 | Discharge Summary ---
Discharge Summary Discharge Summary _ DATE OF ADMISSION: 07/05/2019 DATE OF DISCHARGE: 07/08/2019 DISCHARGED BY: Dr. Garrett Jo CONSULTANTS: Dr. Marvel Ames [facility] COURSE: Patient is a 33-year-old male, with history of Awcuo-Zqungkhwb-Tvqgv, felt palpitations. He called paramedics and was found to be in SVT. He received 2 rounds of adenosine and converted to sinus. He has been on beta-prince. He denied chest pain, however, he had complaints of sore throat. He denied any cough or recent fever or chills. Upon evaluation at ED, initial blood pressure 150/101. Pulse rate 110. He had crackles on both lower lobes. Blood work showed WBC elevated to 11. Hemoglobin and hematocrit normal. Electrolytes normal. LFTs were elevated. Urinalysis negative. Urine toxicology screen negative. EKG was in sinus tachycardia. Chest x-ray was suspicious of pneumonia. There was consideration for COVID-19. He was then admitted for evaluation of SVT and rule out COVID. He underwent cardiac evaluation. Patient had recurrent SVT despite beta- prince therapy. Patient would need electrophysiology study and ablation. He was continued on beta-prince. Thyroid function test was normal. He was placed on O2 support. He was swabbed for COVID-19. He was observed off antibiotic treatment. Hold off on Plaquenil and azithromycin pending results. LFTs were trended. Hepatitis panel was negative. Abdominal ultrasound showed enlarged liver with diffuse increased echogenicity, consistent with diffuse hepatocellular disease, most likely fatty change. He was initially given sotalol. He was eventually started on amiodarone. He was given lisinopril for blood pressure control. There was no recurrence of SVT. He was recommended repeat electrophysiology study and ablation as outpatient. COVID-19 screening was negative. Patient was taken off isolation and was discharged home. To follow-up with PCP and newsperson as outpatient. FINAL DIAGNOSES: Recurrent SVT Hypertension Questionable pneumonia Elevated LFTs, can be medication related and due to fatty change Dyspnea Suspected COVID 19 with negative COVID test DISPOSITION: Patient was discharged home. DISCHARGE MEDICATIONS: Refer to Discharge Medication List. DISCHARGE INSTRUCTIONS: Follow-up in a week. I have been assigned to complete a discharge summary on this account, I was not involved with the patient's management.--LAUREEN Laird Jacqueline Robles NP Jul 10, 2019 12:33
--- NOTE | 2019-07-11 11:10 | NUR ---
*-* INSURANCE *-* DISCHARGE SUMMARY HAS BEEN FAXED TO: [facility] [phone] Addendum: 07/11/19 at 1131 by VIRGINIA BRAGA CM [id number] [facility] NUMBER FOR COMPLETE STAY
== END 2019-07-08 15:51 | disposition home or self-care (01) | DRG 139 ==
LOC: EDBD 20:02 → EMR 20:25 → UNDOADMIN 21:25 → 2E 21:25 → EDBEDREQ 21:30 → 2E 07-06 03:40 → EDBEDREQ 07-06 12:20 → 2E 07-06 12:51
DX: J18.9 Pneumonia, unspecified organism (principal); I47.1 Supraventricular tachycardia; I45.6 Pre-excitation syndrome; I10 Essential (primary) hypertension; R79.89 Other specified abnormal findings of blood chemistry
CPT/HCPCS: 36415; 71045; 76700; 80053; 80307; 81003; 83880; 84439; 84443; 84484; 85025; 85610; 85730; 86140; 86705; 86709; 86803; 87340; 87635; 93005; 93306; 96361; 96374; 99284; J8499

== ENCOUNTER 2019-10-02 00:20 | Emergency (ER) | payer MEDICAID ==
[~2019-10-02] VITALS: Ht 177.8 cm; Wt 90.7 kg
[~2019-10-02 00:20] MED LIST: LISINOPRIL2.5 MG ORAL; METOPROLOL TART25 MG ORAL
[2019-10-02 00:28] VITALS: BP 175/119
--- NOTE | 2019-10-02 00:36 | Emergency Room Report ---
History of Present Illness General Chief Complaint: Palpitations Source: Patient Present Illness HPI Disclaimer: Please note that this report is being documented using [employer] technology. This can lead to erroneous entry secondary to incorrect interpretation by the dictating instrument. 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 Approximate 30 minutes ago the patient was at rest watching television he began to feel palpitations, minor lightheadedness and shortness of breath. Called EMS who found him tachycardic but then his symptoms abruptly resolved. He arrives with stable vital signs heart rate approximately 100 bpm. He states is similar to his prior WPW episodes. He is recently admitted to this hospital a few months ago with similar symptoms and scheduled for outpatient ablation at [facility] but has not yet occurred. He is on metoprolol and no longer taking amiodarone. He also is requesting a refill his lisinopril as he said he ran out of it and has no more refills. Currently denies chest pain, palpitation, shortness of breath, recent cough, fever, vomiting, diarrhea, headache or other changes in his health. Denied excessive caffeine, stimulant use, tobacco or other triggers. PMH: Kggyf-Cebdonkmq-Yhuxb syndrome, hypertension PSH: Cardiac ablation x2 Allergies: Denied Social Hx: Denies Allergies: Coded Allergies: No Known Allergies (Unverified , 07/05/19) COVID-19 Screening Contact w/high risk pt: No Recent Travel to affected area: No Experienced COVID-19 symptoms?: No COVID-19 symptoms experienced: Shortness of Breath COVID-19 Testing performed ADVISOR CONSULTANT: No Nursing Documentation-PMH Past Medical History: No History, Except For Hx Cardiac Problems: Yes - Dedjr-Kztrkhubi-Viyim Syndrome Hx Hypertension: Yes Hx Cancer: No Hx Gastrointestinal Problems: No Hx Neurological Problems: No Review of Systems All Other Systems: negative except mentioned in HPI Physical Exam Vital Signs Date Time Temp Pulse Resp B/P (MAP) Pulse Ox O2 Delivery O2 Flow Rate FiO2 10/02/19 00:18 98.2 117 18 175/119 (137) 98 Room Air General: Awake and alert, no acute distress HEENT: NC/AT. EOMI. Cardiovascular: Borderline tachycardia. S1 and S2 normal. No murmur appreciated Resp: Normal work of breathing. No cough, wheezing or crackles appreciated Abdomen: Abdomen is soft, nondistended. Nontender Skin: Intact. No abrasions, laceration or rash over the exposed skin MSK: Normal tone and bulk. Moving all extremities. No obvious deformity. Neuro: Awake and alert. Mentating appropriately. Medical Decision Making Diagnostic Impression: Primary Impression: WPW (Vydnr-Fkjkjiwxb-Yohcb syndrome) Additional Impressions: Hypertension Ground glass opacity present on imaging of lung ER Course 33-year-old male with history of Ching Parkinson White syndrome presents for evaluation of palpitations now resolved. Heart rate approximately 100 bpm and EKG shows upsloping delta wave consistent with WPW. Rate is now nearly normalized. No evident ST segment elevation. He has no symptoms at this time. He is slightly hypertensive with blood pressure in 150s. No longer on metoprolol. Will obtain labs including EKG and talk screen to evaluate for possible triggers though the patient was scheduled for another cardiac ablation to better control his WPW. We will give an extra dose of metoprolol. 0350: EKG nonischemic. Heart rate now normalized. Labs unremarkable. The patient had a brief episode where he required supplemental oxygen though it was not symptomatic and denied any cough or shortness of breath during this period. He stated that he had a similar episode on his previous hospitalization after a tachyarrhythmia secondary to WPW. He was rapid tested for COVID-19 and returned negative. D-dimer was within normal limits though for the higher end of normal. A CTA was obtained which did not find evidence of pulmonary embolism but did note some extensive patchy groundglass opacities in the peribronchial vascular pattern. This may be from a prior infection or current COVID-19 infection that failed to resulted positive on the rapid test. Patient believes he was told he had something in his lungs on last visit when he was admitted for pneumonia. I discussed this finding with the patient and offered him observation admission. He no longer requires supplemental oxygen and is saturating low 90s on room air. He declined hospitalization at this time. He will follow-up on an outpatient basis with a apparatus operator for another ablation for WPW and with his PMD to discuss the CT findings and his recent symptoms. I instructed him to return to the ED immediately should he have any return of his symptoms to which he agreed. I refilled his lisinopril prescription. He understands and agrees with this treatment plan. Laboratory Tests Test 10/02/19 00:23 White Blood Count 9.3 K/UL (4.8-10.8) Red Blood Count 5.69 M/UL (4.70-6.10) Hemoglobin 17.8 G/DL (14.2-18.0) Hematocrit 52.2 % (42.0-52.0) H Mean Corpuscular Volume 92 FL (80-99) Mean Corpuscular Hemoglobin 31.4 PG (27.0-31.0) H Mean Corpuscular Hemoglobin Concent 34.2 G/DL (32.0-36.0) Red Cell Distribution Width 12.4 % (11.6-14.8) Platelet Count 314 K/UL (150-450) Mean Platelet Volume 8.0 FL (6.5-10.1) Neutrophils (%) (Auto) 55.5 % (45.0-75.0) Lymphocytes (%) (Auto) 33.5 % (20.0-45.0) Monocytes (%) (Auto) 5.3 % (1.0-10.0) Eosinophils (%) (Auto) 4.6 % (0.0-3.0) H Basophils (%) (Auto) 1.1 % (0.0-2.0) D-Dimer 0.42 mg/L FEU (0.00-0.49) Sodium Level 142 MMOL/L (136-145) Potassium Level 3.4 MMOL/L (3.5-5.1) L Chloride Level 105 MMOL/L (98-107) Carbon Dioxide Level 24 MMOL/L (21-32) Anion Gap 13 mmol/L (5-15) Blood Urea Nitrogen 12 mg/dL (7-18) Creatinine 1.1 MG/DL (0.55-1.30) Estimated Glomerular Filtration Rate > 60 mL/min (>60) Glucose Level 170 MG/DL (74-106) H Calcium Level 9.0 MG/DL (8.5-10.1) Total Bilirubin 0.3 MG/DL (0.2-1.0) Aspartate Amino Transferase (AST) 56 U/L (15-37) H Alanine Aminotransferase (ALT) 140 U/L (12-78) H Alkaline Phosphatase 106 U/L (46-116) Troponin I 0.004 ng/mL (0.000-0.056) Total Protein 7.6 G/DL (6.4-8.2) Albumin 4.2 G/DL (3.4-5.0) Globulin 3.4 g/dL Albumin/Globulin Ratio 1.2 (1.0-2.7) Urine Opiates Screen Negative (NEGATIVE) Urine Barbiturates Screen Negative (NEGATIVE) Phencyclidine (PCP) Screen Negative (NEGATIVE) Urine Amphetamines Screen Negative (NEGATIVE) Urine Benzodiazepines Screen Negative (NEGATIVE) Urine Cocaine Screen Negative (NEGATIVE) Urine Marijuana (THC) Screen Negative (NEGATIVE) Serum Alcohol < 3 mg/dL Microbiology Date/Time Source Procedure Growth Status 10/02/19 01:04 Nasopharynx SARS-CoV-2 RdRp Gene Assay - Final Complete EKG Diagnostic Results EKG Time: 00:25 Rate: tachycardiac Other Impression Slight tachycardia. Sinus rhythm, normal axis, normal intervals, no ST segment changes. Upsloping QRS consistent with delta wave and WPW. Rhythm Strip Diag. Results Rhythm Strip Time: 00:25 EP Interpretation: yes Rate: 102 Rhythm: no PVC's, no ectopy, other - WPW Chest X-Ray Diagnostic Results Chest X-Ray Diagnostic Results : Chest X-Ray Ordered: Yes # of Views/Limited/Complete: 1 View Indication: Shortness of Breath EP Interpretation: Yes Interpretation: other - Bilateral vascular congestion. No effusion, no obvious infiltrate Impression: Other - Bilateral pulmonary congestion Electronically Signed by: Electronically signed by Dr. Romie Yousif Last Vital Signs Date Time Temp Pulse Resp B/P (MAP) Pulse Ox O2 Delivery O2 Flow Rate FiO2 10/02/19 00:18 98.2 117 18 175/119 (137) 98 Room Air Disposition: HOME, SELF-CARE Condition: Stable Scripts Lisinopril* (LISINOPRIL*) 2.5 Mg Tablet 2.5 MG ORAL DAILY for HTN for 30 Days, #30 TAB 0 Refills Prov: Romie Yousif MD 10/02/19 Romie Yousif MD Oct 02, 2019 00:36
[2019-10-02] MEDS ORDERED: LISINOPRIL2.5 MG ORAL (00:37)
[2019-10-02 00:39] LABS: BASOPHILS % (AUTO) 1.1 % (0.0-2.0); EOSINOPHILS % (AUTO) 4.6 % (0.0-3.0); HEMATOCRIT 52.2 % (42.0-52.0); HEMOGLOBIN 17.8 G/DL (14.2-18.0); LYMPHOCYTES % (AUTO) 33.5 % (20.0-45.0); MEAN CORPUSCULAR VOLUME 92 FL (80-99); MONOCYTES % (AUTO) 5.3 % (1.0-10.0); NEUTROPHILS % (AUTO) 55.5 % (45.0-75.0); PLATELET COUNT 314 K/UL (150-450); RED BLOOD COUNT 5.69 M/UL (4.70-6.10); RED CELL DISTRIBUTION WIDTH 12.4 % (11.6-14.8); WHITE BLOOD COUNT 9.3 K/UL (4.8-10.8)
[2019-10-02 00:49] LABS: ANION GAP 13 mmol/L (5-15); BLOOD UREA NITROGEN 12 mg/dL (7-18); CARBON DIOXIDE 24 MMOL/L (21-32); CHLORIDE 105 MMOL/L (98-107); CREATININE 1.1 MG/DL (0.55-1.30); POTASSIUM 3.4 MMOL/L (3.5-5.1); SODIUM 142 MMOL/L (136-145)
[2019-10-02 00:54] LABS: ALANINE AMINOTRANSFERASE 140 U/L (12-78); ALBUMIN 4.2 G/DL (3.4-5.0); ALBUMIN/GLOBULIN RATIO 1.2 (1.0-2.7); ALKALINE PHOSPHATASE 106 U/L (46-116); ASPARTATE AMINO TRANSFERASE 56 U/L (15-37); BILIRUBIN,TOTAL 0.3 MG/DL (0.2-1.0)
--- NOTE | 2019-10-02 01:16 | Diagnostic Imaging Report ---
EXAM: XR Chest, 1 View CLINICAL HISTORY: CP TECHNIQUE: Frontal view of the chest. COMPARISON: 07/07/19 FINDINGS: Lungs: No significant abnormality. No consolidation. Pleural space: No significant abnormality. No pneumothorax. Heart: No significant abnormality. No cardiomegaly. Mediastinum: No significant abnormality. Bones/joints: No acute osseous abnormality. IMPRESSION: No acute cardiopulmonary process.
[2019-10-02] MEDS ORDERED: Omnipaque 350 100ml vial INJ PRN (02:15)
--- NOTE | 2019-10-02 03:45 | Diagnostic Imaging Report ---
EXAM: CT Angiography Chest With Intravenous Contrast CLINICAL HISTORY: PE TECHNIQUE: Axial computed tomographic angiography images of the chest with intravenous contrast. CTDI is 15 mGy and DLP is 439 mGy-cm. One or more of the following dose reduction techniques were used: automated exposure control, adjustment of the mA and/or kV according to patient size, use of iterative reconstruction technique. MIP reconstructed images were created and reviewed. COMPARISON: 10/02/2019 FINDINGS: Pulmonary arteries: No filling defects. Aorta: No thoracic aortic aneurysm. Lungs: No mass. Bilateral patchy groundglass opacities throughout the lungs in a peribronchovascular pattern. Pleural space: No pneumothorax. No effusion. Heart: No cardiomegaly. No pericardial effusion. Bones/joints: No acute fracture or dislocation. Soft tissues: Hepatic steatosis.. Lymph nodes: No enlarged lymph nodes. IMPRESSION: 1. No pulmonary embolism. 2. Extensive bilateral patchy groundglass opacities in a peribronchovascular pattern, correlate with pulmonary edema versus infectious/inflammatory process/Covid 19. 3. Hepatic steatosis.
[2019-10-02 03:49] VITALS: BP 150/101
[2019-10-02 04:00] VITALS: BP 150/101
== END 2019-10-02 04:01 | disposition home or self-care (01) ==
LOC: EDBD 00:20 → EMR 00:32
DX: I45.6 Pre-excitation syndrome (principal); I10 Essential (primary) hypertension
CPT/HCPCS: 36415; 71045; 71275; 80053; 80307; 84484; 85025; 85379; 93005; G0480; Q9967; U0002; Z7502; 99284